=== PATIENT | female | born 1940 | race Caucasian/White ===

== ENCOUNTER → 2016-03-15 | Outpatient (CLI) | payer MEDICARE, OTHER | LOC: GMAM 16:52 | PROVIDERS: ATTEND Family Medicine | DX: G89.29 Other chronic pain (principal); E03.9 Hypothyroidism, unspecified ==

== ENCOUNTER → 2016-04-12 | Outpatient (CLI) | payer MEDICARE, MEDICAID | END | disposition home or self-care (01) | LOC: YCHH 15:21 | PROVIDERS: ATTEND Family Medicine | DX: N39.0 Urinary tract infection, site not specified (principal); I48.91 Unspecified atrial fibrillation; R30.0 Dysuria ==

== ENCOUNTER 2016-04-20 16:52 | Emergency (ER) | payer MEDICARE, MEDICAID ==
--- NOTE | 2016-04-20 17:42 | ED.PDOC ---
History of Present Illness - General Chief Complaint: Fever Stated Complaint: fever, weakness, runny nose Time Seen by Provider: 04/20/16 17:40 Source: patient, RN notes reviewed, Vital Signs reviewed Exam Limitations: no limitations - History of Present Illness Initial Comments: She stated that she had cough and congetion for 3 days then developed low grade fever tonight. Timing/Duration: other - 2 days ago Improving Factors: nothing Worsening Factors: nothing Associated Symptoms: cough - non productive Allergies/Adverse Reactions: Allergies NO KNOWN ALLERGY Allergy (Verified 04/20/16 17:05) Home Medications: Ambulatory Orders Clonazepam 0.5 mg PO BEDTIME 12/17/13 Dabigatran Etexilate [Pradaxa] 75 mg PO BID 12/17/13 Digoxin 250 mcg PO DAILY 12/17/13 Escitalopram [Lexapro] 15 mg PO DAILY 12/17/13 HYDROcodone 10MG/APAP 325MG [[place] 10/325] 1 tab PO Q6H PRN 12/17/13 Levothyroxine Sodium 50 mcg PO DAILY 12/17/13 Phenytoin Sodium Cap [Dilantin Cap] 100 mg PO DAILY 12/17/13 Phenytoin Sodium Cap [Dilantin Cap] 200 mg PO BEDTIME 12/17/13 Polyethylene Glycol 3350 [Miralax] 17 gm PO PRN PRN 12/17/13 Potassium Chloride [Potassium Chloride ER] 20 meq PO BID 12/17/13 Quetiapine Fumarate [Seroquel] 300 mg PO BEDTIME 12/17/13 Rosuvastatin Calcium [Crestor] 20 mg PO DAILY 12/17/13 Diltiazem HCl Coated Beads [Diltiazem Cd] 180 mg PO DAILY 12/09/15 Linaclotide [Linzess] 145 mcg PO DAILY 12/09/15 Dextromet/Guaifenesin 600/30 T [Mucinex Dm 600/30MG] 1 tab PO BID #30 tab Review of Systems - Review of Systems Constitutional: States: see HPI, fever EENTM: States: see HPI, nose congestion Respiratory: States: see HPI, cough Cardiology: States: no symptoms reported Gastrointestinal/Abdominal: States: no symptoms reported Genitourinary: States: no symptoms reported Musculoskeletal: States: no symptoms reported Neurological: States: no symptoms reported Endocrine: States: flushing Hematologic/Lymphatic: States: no symptoms reported Past Medical History (General) - Patient Medical History Hx Seizures: Yes Hx Stroke: No Hx Dementia: No Hx of COPD: Yes Hx Cardiac Disorders: Yes - a fib Hx Congestive Heart Failure: No Hx Hypertension: Yes Hx Thyroid Disease: Yes Hx Diabetes: No Hx Gastroesophageal Reflux: Yes Hx Cancer: No Hx Hepatitis C: No Surgical History: other Other Surgeries:: both knees,back - Vaccination History Hx Tetanus, Diphtheria Vaccination: No Hx Influenza Vaccination: Yes Hx Pneumococcal Vaccination: No - Social History Hx Tobacco Use: No Hx Chewing Tobacco Use: No Hx Alcohol Use: No Hx Substance Use: No Hx Substance Use Treatment: No Hx Depression: No Hx Physical Abuse: No Hx Emotional Abuse: No Hx Suspected Abuse: No - Activities of Daily Living Hospice Agency (if applicable):: None - Female History Patient is a Female of Child Bearing Age (10 -59 yrs old): No Patient : No Family Medical History - Family History Sister Living Status: Still Living Hx Family Cancer: Yes - breast Physical Exam - Physical Exam General Appearance: Alert, No apparent distress Eye Exam: bilateral normal Ears, Nose, Throat: hearing grossly normal, normal ENT inspection, nasal congestion Neck: non-tender, full range of motion, supple Respiratory: chest non-tender, lungs clear, normal breath sounds, no respiratory distress Cardiovascular/Chest: normal peripheral pulses, regular rate, rhythm, no edema, no gallop, no JVD Gastrointestinal/Abdominal: normal bowel sounds, non tender, soft, no organomegaly, no pulsatile mass Back Exam: normal inspection, no CVA tenderness, no vertebral tenderness Extremity: normal range of motion, non-tender, normal inspection, no pedal edema Neurologic: no motor/sensory deficits, alert, normal mood/affect Progress - Results/Orders Results/Orders: Laboratory Results WBC 8.5 K/mm3 (4.8-10.8) 04/20/16 17:42 RBC 4.39 M/mm3 (4.20-5.40) 04/20/16 17:42 Hgb 12.5 gm/dL (12.0-16.0) 04/20/16 17:42 Hct 37.5 % (36.0-47.0) 04/20/16 17:42 MCV 85.6 fl (81.0-99.0) 04/20/16 17:42 MCH 28.4 pg (27.0-31.0) 04/20/16 17:42 MCHC 33.2 g/dL (33.0-37.0) 04/20/16 17:42 RDW 14.9 % (11.5-14.5) H 04/20/16 17:42 Plt Count 216 K/mm3 (130-400) 04/20/16 17:42 MPV 7.3 fl (7.40-10.4) L 04/20/16 17:42 Absolute Neuts (auto) 4.60 K/uL (1.8-6.8) 04/20/16 17:42 Absolute Lymphs (auto) 2.60 K/uL (1.0-3.4) 04/20/16 17:42 Absolute Monos (auto) 1.10 K/uL (0.2-0.8) H 04/20/16 17:42 Absolute Eos (auto) 0.20 K/uL (0.0-0.4) 04/20/16 17:42 Absolute Basos (auto) 0.10 K/uL (0.0-0.1) 04/20/16 17:42 Neutrophils % 53.9 % (42.0-78.0) 04/20/16 17:42 Lymphocytes % 30.1 % (20.0-50.0) 04/20/16 17:42 Monocytes % 12.8 % (2.0-9.0) H 04/20/16 17:42 Eosinophils % 2.3 % (1.0-5.0) 04/20/16 17:42 Basophils % 0.9 % (0.0-2.0) 04/20/16 17:42 Sodium 142 mmol/L (135-145) 04/20/16 17:42 Potassium 3.4 mmol/L (3.6-5.0) L 04/20/16 17:42 Chloride 105 mmol/L (101-111) 04/20/16 17:42 Carbon Dioxide 28 mmol/L (21-31) 04/20/16 17:42 Anion Gap 12.4 (12-18) 04/20/16 17:42 BUN 19 mg/dL (7-18) H 04/20/16 17:42 Creatinine 1.14 mg/dL (0.6-1.3) 04/20/16 17:42 BUN/Creatinine Ratio 16.7 (10-20) 04/20/16 17:42 Random Glucose 79 mg/dL (70-105) 04/20/16 17:42 Serum Osmolality 284.3 mOsm/L (275-295) 04/20/16 17:42 Calcium 9.3 mg/dL (8.4-10.2) 04/20/16 17:42 Total Bilirubin 0.5 mg/dL (0.2-1.0) 04/20/16 17:42 AST 30 IU/L (10-42) 04/20/16 17:42 ALT 22 IU/L (10-60) 04/20/16 17:42 Alkaline Phosphatase 112 IU/L (42-121) 04/20/16 17:42 Serum Total Protein 7.7 gm/dL (6.4-8.2) 04/20/16 17:42 Albumin 4.4 g/dl (3.2-5.5) 04/20/16 17:42 Globulin 3.3 gm/dL (2.3-3.5) 04/20/16 17:42 Albumin/Globulin Ratio 1.3 (1.1-1.9) 04/20/16 17:42 Urine Color Yellow (Yellow) 04/20/16 17:49 Urine Appearance Clear (Clear) 04/20/16 17:49 Urine pH 6.0 (4.5-7.8) 04/20/16 17:49 Ur Specific [place] 1.020 (1.005-1.030) 04/20/16 17:49 Urine Protein 30 mg/dL 04/20/16 17:49 Urine Glucose (UA) Negative mg/dL (Negative) 04/20/16 17:49 Urine Ketones Negative mg/dL (NEGATIVE) 04/20/16 17:49 Urine Blood Moderate (Negative) H 04/20/16 17:49 Urine Nitrite Negative 04/20/16 17:49 Urine Bilirubin Negative (NEGATIVE) 04/20/16 17:49 Urine Urobilinogen 0.2 mg/dL (0.2-1.0) 04/20/16 17:49 Ur Leukocyte Esterase Negative (Negative) 04/20/16 17:49 Urine RBC 20-30 /hpf H 04/20/16 17:49 Urine WBC 3-5 /hpf H 04/20/16 17:49 Ur Epithelial Cells 10-20 /hpf 04/20/16 17:49 Urine Bacteria 1+ 04/20/16 17:49 Digoxin 0.7 ng/mL (1.0-2.0) L 04/20/16 18:18 Phenytoin 5.2 ug/mL (10.0-20.0) L 04/20/16 18:18 Flu swab-negative - EKG/XRAY/CT XRAY: chest - no acute abnormalities noted CT Ordered: Yes - Abd/pelvis: no abnormalities noted Departure - Departure Clinical Impression: Viral upper respiratory illness Time of Disposition: 19:53 Disposition: Discharge to Home or Self Care Condition: Good Departure Forms: ED Discharge - Pt. Copy, Patient Portal Self Enrollment Instructions: DI for Viral Upper Respiratory Infection -- Adult Referrals: Manuel Giang MD [Primary Care Provider] - 1-2 Weeks Prescriptions: Dextromet/Guaifenesin 600/30 T [Mucinex Dm 600/30MG] 1 tab PO BID #30 tab Home Medications: Ambulatory Orders Clonazepam 0.5 mg PO BEDTIME 12/17/13 Dabigatran Etexilate [Pradaxa] 75 mg PO BID 12/17/13 Digoxin 250 mcg PO DAILY 12/17/13 Escitalopram [Lexapro] 15 mg PO DAILY 12/17/13 HYDROcodone 10MG/APAP 325MG [[place] [address]] 1 tab PO Q6H PRN 12/17/13 Levothyroxine Sodium 50 mcg PO DAILY 12/17/13 Phenytoin Sodium Cap [Dilantin Cap] 100 mg PO DAILY 12/17/13 Phenytoin Sodium Cap [Dilantin Cap] 200 mg PO BEDTIME 12/17/13 Polyethylene Glycol 3350 [Miralax] 17 gm PO PRN PRN 12/17/13 Potassium Chloride [Potassium Chloride ER] 20 meq PO BID 12/17/13 Quetiapine Fumarate [Seroquel] 300 mg PO BEDTIME 12/17/13 Rosuvastatin Calcium [Crestor] 20 mg PO DAILY 12/17/13 Diltiazem HCl Coated Beads [Diltiazem Cd] 180 mg PO DAILY 12/09/15 Linaclotide [Linzess] 145 mcg PO DAILY 12/09/15 Dextromet/Guaifenesin 600/30 T [Mucinex Dm 600/30MG] 1 tab PO BID #30 tab Additional Instructions: RETURN TO EMERGENCY ROOM NEEDED;FOLLOW WITH PRIMARY MD 04/25/2016 family to call for appointment
--- NOTE | 2016-04-20 18:28 | RAD ---
EXAM DESCRIPTION: Chest,2 Views CLINICAL HISTORY: weakness COMPARISON: March 09, 2015 FINDINGS: Cardiac silhouette is within normal limits. Aorta is tortuous. There is atherosclerosis. There is no focal parenchymal or pleural disease. There is no acute osseous process visualized. IMPRESSION: No evidence of acute cardiopulmonary disease. Electronically signed by: Fritz Boothe MD 04/20/2016 6:27 PM PENS AND PENCILS DIPPER
--- NOTE | 2016-04-20 19:00 | CT ---
EXAM DESCRIPTION: Abdoment/Pelvis w/o Contrast CLINICAL HISTORY: hematuria COMPARISON: February 14, 2010 TECHNIQUE: Contiguous axial images of the abdomen and pelvis were obtained followed by reconstruction images. FINDINGS: Linear opacities within the lungs may represent scar versus subsegmental atelectasis. There is atherosclerosis. There are multiple low-attenuation masses within the spleen largest measuring approximately 3.2 cm. Correlation with a contrast enhanced CT or ultrasound is recommended for further evaluation. The liver, pancreas and kidneys are within normal limits except for a small renal cyst. 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 Patient is status post hysterectomy. The appendix was not visualized, there is no pericecal inflammation. There is no hydronephrosis or renal stones. The gallbladder is unremarkable by CT criteria. Adrenal glands are within normal limits. Aorta is of normal caliber and tapering. There is no free fluid in the abdomen or pelvis. There is no bowel obstruction. There is no stranding of the mesenteric fat to suggest an inflammatory response. Calcifications within the pelvis compatible with phleboliths. IMPRESSION: Multiple low-attenuation masses within the spleen. This could be secondary to granulomatous disease versus cyst versus lymphoma. Other etiologies not excluded. These have enlarged when compared with the prior exam. Correlation with a contrast enhanced CT or ultrasound is recommended for further evaluation Electronically signed by: Fritz Boothe MD 04/20/2016 6:59 PM SENIOR SOFTWARE QA ENGINEER
[2016-04-20 19:04] VITALS: BP 140/77; TEMP 99
[2016-04-20] MEDS ORDERED: PROMETHAZINE HCL 25 MG TAB PO ONE (20:14)
[2016-04-20] MEDS ORDERED: guaiFENesin/DEXTROMETH SYRUP 5 ML UD PO ONE (20:14)
[2016-04-20] MEDS ORDERED: PROMETHAZINE HCL 25 MG TAB ONE (20:15)
[2016-04-20 20:42] VITALS: O2SAT 95
[2016-04-20] MEDS ORDERED: DEXTROMET/GUAIFENESIN 600/30 TAB PO SCH (21:00)
--- NOTE | 2016-04-24 00:48 | RAD ---
EXAM DESCRIPTION: Chest,2 Views CLINICAL HISTORY: weakness COMPARISON: March 09, 2015 FINDINGS: Cardiac silhouette is within normal limits. Aorta is tortuous. There is atherosclerosis. There is no focal parenchymal or pleural disease. There is no acute osseous process visualized. IMPRESSION: No evidence of acute cardiopulmonary disease. Electronically signed by: Fritz Boothe MD 04/20/2016 6:27 PM PATIENT OFFICE REP
== END 2016-04-20 20:30 | disposition home or self-care (01) ==
LOC: ER 16:52
DX: J06.9 Acute upper respiratory infection, unspecified (principal); J44.9 Chronic obstructive pulmonary disease, unspecified; I48.91 Unspecified atrial fibrillation; I10 Essential (primary) hypertension; K21.9 Gastro-esophageal reflux disease without esophagitis; E07.9 Disorder of thyroid, unspecified; Z79.899 Other long term (current) drug therapy
CPT/HCPCS: 71020; 74176; 80053; 80162; 80185; 81001; 85025; 87502; Q0169

== ENCOUNTER → 2016-05-10 | Outpatient (CLI) | payer MEDICARE, MEDICAID | END | disposition home or self-care (01) | LOC: YCHH 12:14 | PROVIDERS: ATTEND Family Medicine | DX: E03.9 Hypothyroidism, unspecified (principal) ==

== ENCOUNTER → 2016-07-03 | Outpatient (CLI) | payer MEDICARE, MEDICAID | END | disposition home or self-care (01) | LOC: YCHH 10:00 | PROVIDERS: ATTEND Family Medicine | DX: G45.9 Transient cerebral ischemic attack, unspecified (principal); I48.91 Unspecified atrial fibrillation; R42 Dizziness and giddiness ==

== ENCOUNTER → 2016-10-02 | Outpatient (CLI) | payer MEDICARE, MEDICAID | END | disposition home or self-care (01) | LOC: YCHH 09:13 | PROVIDERS: ATTEND Family Medicine | DX: I25.119 Atherosclerotic heart disease of native coronary artery with unspecified angina pectoris (principal); I48.91 Unspecified atrial fibrillation; Z79.899 Other long term (current) drug therapy; E03.9 Hypothyroidism, unspecified ==

== ENCOUNTER → 2016-10-10 | Outpatient (CLI) | payer MEDICARE, MEDICAID ==
--- NOTE | 2016-10-10 11:13 | MRI ---
EXAM DESCRIPTION: Brain w/o Contrast CLINICAL HISTORY: 76 years, Female, EPILEPSY COMPARISON: None. FINDINGS: Standard triplanar sequences. The diffusion-weighted sequences karen acute infarct. Gradient sequence does not show hemorrhage. Slightly prominent ventricles and sulci probably within normal limits. There are moderate white matter changes periventricular white matter. These are bilateral but more on the right side. Additionally one of the foci in the right centrum semiovale, frontal parietal region, measures about 7 mm. This is nonspecific, but it is an asymmetric regional larger than the other foci. Additionally there are asymmetric foci in the posterior temporal regions bilaterally more on the right. This is an unusual distribution and is not typical of more commonly seen age-related white matter changes. Moderate ethmoid sinus mucosal thickening. IMPRESSION: 1. No acute infarct, hemorrhage or mass. 2. Moderate microischemic changes present bilaterally more on the right. As discussed above, the distribution of the white matter changes are not typical of the normally seen age-related changes Electronically signed by: Leopoldo Marshall MD 10/10/2016 11:12 AM CDT
--- NOTE | 2016-10-10 11:20 | MRI ---
EXAM DESCRIPTION: MRA Head and/or Neck CLINICAL HISTORY: 76 years Female, CEREBRAL INFARC COMPARISON: MRI brain October 11, 2016 TECHNIQUE: Noncontrast [id number] MRA images of the neck are obtained with 3-D reconstructed images of the arterial vasculature. Postcontrast coronal images of the neck are also obtained with 3-D reconstructed images of the arterial vasculature. FINDINGS: Noncontrast exam is moderately limited by patient motion artifact. There is normal origin of the great vessels from the aortic arch. There is a 1 cm flow gap at the origin of the left vertebral artery. The right vertebral artery is dominant. There is smooth plaque in the region of the carotid bulb to proximal internal carotid artery bilaterally. No flow gap or significant narrowing is seen by NASCET criteria in the internal carotid arteries. IMPRESSION: Mild smooth nonflow limiting plaque in the carotid bulb to proximal internal carotid artery seen bilaterally without evidence of flow-limiting stenosis by NASCET criteria. Flow gap at the origin of the left vertebral artery suggests significant greater than 75-90 % stenosis at the origin of this vessel. Electronically signed by: Forrest Sam MD 10/10/2016 11:19 AM CDT
== END | disposition home or self-care (01) ==
LOC: MRI 08:51
PROVIDERS: ATTEND Psychiatry & Neurology Neurology
DX: G60.3 Idiopathic progressive neuropathy (principal); G40.311 Generalized idiopathic epilepsy and epileptic syndromes, intractable, with status epilepticus; I63.412 Cerebral infarction due to embolism of left middle cerebral artery; M50.11 Cervical disc disorder with radiculopathy, high cervical region

== ENCOUNTER → 2016-12-18 | Outpatient (CLI) | payer MEDICARE, MEDICAID, OTHER | END | disposition home or self-care (01) | LOC: GMA 15:15 | PROVIDERS: ATTEND Physician Assistant | DX: R31.0 Gross hematuria (principal) ==

== ENCOUNTER → 2017-01-03 | Outpatient (CLI) | payer MEDICARE, MEDICAID | END | disposition home or self-care (01) | LOC: YCHH 09:36 | PROVIDERS: ATTEND Family Medicine | DX: Z79.899 Other long term (current) drug therapy (principal); Z79.01 Long term (current) use of anticoagulants; E78.2 Mixed hyperlipidemia; E03.9 Hypothyroidism, unspecified; I25.119 Atherosclerotic heart disease of native coronary artery with unspecified angina pectoris ==

== ENCOUNTER → 2017-02-01 | Outpatient (CLI) | payer MEDICARE, MEDICAID | END | disposition home or self-care (01) | LOC: GMAM 15:01 | PROVIDERS: ATTEND Family Medicine | DX: R56.9 Unspecified convulsions (principal) ==

== ENCOUNTER → 2017-03-01 | Outpatient (CLI) | payer MEDICARE, MEDICAID | END | disposition home or self-care (01) | LOC: GMAM 14:25 | PROVIDERS: ATTEND Family Medicine | DX: I48.2 Chronic atrial fibrillation (principal); R56.9 Unspecified convulsions ==

== ENCOUNTER → 2017-03-06 | Outpatient (CLI) | payer MEDICARE, MEDICAID | END | disposition home or self-care (01) | LOC: YCHH 12:19 | PROVIDERS: ATTEND Family Medicine | DX: N39.0 Urinary tract infection, site not specified (principal) ==

== ENCOUNTER → 2017-03-12 | Outpatient (CLI) | payer MEDICARE, MEDICAID | END | disposition home or self-care (01) | LOC: YCHH 09:42 | PROVIDERS: ATTEND Family Medicine | DX: Z51.81 Encounter for therapeutic drug level monitoring (principal) ==

== ENCOUNTER 2017-03-16 22:43 | Emergency (ER) | payer MEDICARE, MEDICAID ==
[2017-03-16 23:07] VITALS: TEMP 99.2; O2SAT 97
--- NOTE | 2017-03-16 23:42 | RAD ---
EXAM: Single view chest. INDICATION: Cough. COMPARISON: Chest x-ray: 04/20/2016. FINDINGS: Cardiac silhouette: Mildly enlarged Tegan: Unremarkable. Lobar consolidation: None. Pleural effusion: None. Pneumothorax: None. Other: None. Bones: Unremarkable. Other: None. IMPRESSION: 1. No acute cardiopulmonary process. Electronically signed by: Negro Lobato MD 03/16/2017 11:41 PM ALCOHOL RUBBER Workstation: [id number]
--- NOTE | 2017-03-16 23:50 | ED.PDOC ---
History of Present Illness - General Chief Complaint: Fever Stated Complaint: congestion, fever, aches, cough Time Seen by Provider: 03/16/17 22:59 Source: family Exam Limitations: no limitations - History of Present Illness Initial Comments: Radha Hernandez 76 y/o female brought by family member with dry cough,nasal congestion for one week and developed fever tonight.No nausea,vomiting , diarrhea. Timing/Duration: 1 week, other - see hpi Severity: moderate Improving Factors: nothing Worsening Factors: nothing Associated Symptoms: other - see hpi Allergies/Adverse Reactions: Allergies Levofloxacin [From Levaquin] Allergy (Verified 03/16/17 23:07) Home Medications: Ambulatory Orders Clonazepam 0.5 mg PO BEDTIME 12/17/13 Dabigatran Etexilate [Pradaxa] 75 mg PO BID 12/17/13 Digoxin 250 mcg PO DAILY 12/17/13 Escitalopram [Lexapro] 15 mg PO DAILY 12/17/13 HYDROcodone 10MG/APAP 325MG [[place] 10/325] 1 tab PO Q6H PRN 12/17/13 Levothyroxine Sodium 50 mcg PO DAILY 12/17/13 Phenytoin Sodium Cap Extended [Dilantin Cap] 100 mg PO DAILY 12/17/13 Phenytoin Sodium Cap Extended [Dilantin Cap] 200 mg PO BEDTIME 12/17/13 Polyethylene Glycol 3350 [Miralax] 17 gm PO PRN PRN 12/17/13 Potassium Chloride [Potassium Chloride ER] 20 meq PO BID 12/17/13 Quetiapine Fumarate [Seroquel] 300 mg PO BEDTIME 12/17/13 Rosuvastatin Calcium [Crestor] 20 mg PO DAILY 12/17/13 Diltiazem HCl Coated Beads [Diltiazem Cd] 180 mg PO DAILY 12/09/15 Linaclotide [Linzess] 145 mcg PO DAILY 12/09/15 Dextromet/Guaifenesin 600/30 T [Mucinex Dm 600/30MG] 1 tab PO BID #30 tab Oseltamivir Capsule [Tamiflu] 75 mg PO BID 5 Days #10 capsule 03/17/17 Review of Systems - Review of Systems Constitutional: States: no symptoms reported EENTM: States: see HPI, nose congestion Respiratory: States: see HPI, cough Cardiology: States: no symptoms reported Gastrointestinal/Abdominal: States: no symptoms reported Genitourinary: States: no symptoms reported Musculoskeletal: States: no symptoms reported Skin: States: no symptoms reported Neurological: States: emotional problems - chronic All other Systems: Reviewed and Negative, No Change from Baseline Past Medical History (General) - Patient Medical History Hx Seizures: Yes Hx Stroke: No Hx Dementia: No Hx Asthma: No Hx of COPD: Yes Hx Cardiac Disorders: Yes - a fib Hx Congestive Heart Failure: No Hx Pacemaker: No Hx Hypertension: Yes Hx Thyroid Disease: Yes Hx Diabetes: No Hx Gastroesophageal Reflux: Yes Hx Renal Disease: No Hx Cancer: No Hx of HIV: No Hx Hepatitis C: No Hx MRSA: No Surgical History: other - hysterectomy - Vaccination History Hx Tetanus, Diphtheria Vaccination: No Hx Influenza Vaccination: Yes Hx Pneumococcal Vaccination: No - Social History Hx Tobacco Use: No Hx Chewing Tobacco Use: No Hx Alcohol Use: No Hx Substance Use: No Hx Substance Use Treatment: No Hx Depression: No Hx Physical Abuse: No Hx Emotional Abuse: No Hx Suspected Abuse: No - Activities of Daily Living Grooming Ability: Independent Eating (Feeding) Ability: Independent Toileting Ability: Standby Assistance - Female History Patient : No Family Medical History - Family History Sister Living Status: Still Living Hx Family Cancer: Yes - breast Physical Exam - Physical Exam General Appearance: Alert, Comfortable, No apparent distress Eye Exam: bilateral normal Ears, Nose, Throat: hearing grossly normal, normal ENT inspection, normal pharynx Neck: non-tender, supple Respiratory: chest non-tender, lungs clear, normal breath sounds Cardiovascular/Chest: normal peripheral pulses, regular rate, rhythm, no murmur Peripheral Pulses: radial,right: 2+, radial,left: 2+ Gastrointestinal/Abdominal: normal bowel sounds, non tender, soft, no organomegaly Back Exam: no CVA tenderness, no vertebral tenderness Extremity: non-tender, no pedal edema, no calf tenderness Neurologic: alert, oriented x 3 Skin Exam: normal color Progress - Progress Progress: 03/16/17 23:53 Last Vital Signs Temp 99.2 F 03/16/17 22:45 Pulse 83 03/16/17 22:45 Resp 18 03/16/17 22:45 BP 126/65 03/16/17 22:45 Pulse Ox 97 03/16/17 22:45 - Results/Orders Results/Orders: Laboratory Tests 03/16/17 03/16/17 22:15 22:15 WBC 5.0 RBC 4.21 Hgb 11.2 L Hct 34.3 L MCV 81.5 MCH 26.6 L MCHC 32.7 L RDW 16.3 H Plt Count 167 MPV 7.3 L Absolute Neuts (auto) 3.30 Absolute Lymphs (auto) 0.80 L Absolute Monos (auto) 0.80 Absolute Eos (auto) 0.00 Absolute Basos (auto) 0.00 Neutrophils % 66.7 Lymphocytes % 16.7 L Monocytes % 15.8 H Eosinophils % 0.1 L Basophils % 0.7 Sodium 139 Potassium 3.6 Chloride 106 Carbon Dioxide 26 Anion Gap 10.6 L BUN 20 H Creatinine 1.02 BUN/Creatinine Ratio 19.6 Random Glucose 127 H Serum Osmolality 281.7 Calcium 8.7 Total Bilirubin 0.3 AST 40 ALT 31 Alkaline Phosphatase 91 Serum Total Protein 6.9 Albumin 3.9 Globulin 3.0 Albumin/Globulin Ratio 1.3 POSITIVE FLU B Departure - Departure Clinical Impression: Influenza due to influenza virus, type B Time of Disposition: 23:55 Disposition: Discharge to Home or Self Care Condition: Fair Departure Forms: ED Discharge - Pt. Copy, Patient Portal Self Enrollment Instructions: Influenza, DI for H1N1 Influenza -- Adult Referrals: Manuel Giang MD [Primary Care Provider] - 1-2 Weeks Prescriptions: Oseltamivir Capsule [Tamiflu] 75 mg PO BID 5 Days #10 capsule Home Medications: Ambulatory Orders Clonazepam 0.5 mg PO BEDTIME 12/17/13 Dabigatran Etexilate [Pradaxa] 75 mg PO BID 12/17/13 Digoxin 250 mcg PO DAILY 12/17/13 Escitalopram [Lexapro] 15 mg PO DAILY 12/17/13 HYDROcodone 10MG/APAP 325MG [[place] 10/325] 1 tab PO Q6H PRN 12/17/13 Levothyroxine Sodium 50 mcg PO DAILY 12/17/13 Phenytoin Sodium Cap Extended [Dilantin Cap] 100 mg PO DAILY 12/17/13 Phenytoin Sodium Cap Extended [Dilantin Cap] 200 mg PO BEDTIME 12/17/13 Polyethylene Glycol 3350 [Miralax] 17 gm PO PRN PRN 12/17/13 Potassium Chloride [Potassium Chloride ER] 20 meq PO BID 12/17/13 Quetiapine Fumarate [Seroquel] 300 mg PO BEDTIME 12/17/13 Rosuvastatin Calcium [Crestor] 20 mg PO DAILY 12/17/13 Diltiazem HCl Coated Beads [Diltiazem Cd] 180 mg PO DAILY 12/09/15 Linaclotide [Linzess] 145 mcg PO DAILY 12/09/15 Dextromet/Guaifenesin 600/30 T [Mucinex Dm 600/30MG] 1 tab PO BID #30 tab Oseltamivir Capsule [Tamiflu] 75 mg PO BID 5 Days #10 capsule 03/17/17 Additional Instructions: Tylenol 500mg one tablet every 6 hours for fever as needed;Increase oral fluid intake
[2017-03-16] MEDS ORDERED: OSELTAMIVIR 75 MG CAP PO ONE (23:56)
[2017-03-17 00:23] VITALS: BP 125/69
== END 2017-03-17 00:24 | disposition home or self-care (01) ==
LOC: ER 22:43
DX: J10.1 Influenza due to other identified influenza virus with other respiratory manifestations (principal); J44.9 Chronic obstructive pulmonary disease, unspecified; I48.91 Unspecified atrial fibrillation; I10 Essential (primary) hypertension; E07.9 Disorder of thyroid, unspecified

== ENCOUNTER 2017-03-28 11:57 | Emergency (ER) | payer MEDICARE, MEDICAID ==
[2017-03-28 12:12] VITALS: TEMP 97.5
--- NOTE | 2017-03-28 12:52 | RAD ---
EXAM DESCRIPTION: Chest,2 Views CLINICAL HISTORY: mild sob COMPARISON: Portable chest 03/16/2017. TECHNIQUE: PA lateral. FINDINGS: The lungs are well expanded bilaterally and clear of infiltrates. Stable radiodense nodule in the left base. No pleural effusion, no pneumothorax. Senescent pulmonary densities bilaterally. Heart size upper normal range.; pulmonary vascularity not increased.. Mediastinum no widening. Aorta minimal atherosclerotic changes. Monitoring leads on the chest.. No gross bony thoracic abnormalities. Spondylosis and disc space narrowing at some levels of thoracic spine. IMPRESSION: No radiographic evidence of acute cardiopulmonary disease in this senescent chest. Stable since the prior study 03/16/2017. Electronically signed by: Shailesh Alejandra MD 03/28/2017 12:51 PM CLIP LOADING MACHINE ADJUSTER
--- NOTE | 2017-03-28 13:06 | CT ---
EXAM DESCRIPTION: Head: Computed Tomography. CLINICAL HISTORY: dizziness, fall 2 d ago on coumadin COMPARISON: CT scan of the head without contrast 04/25/2015. TECHNIQUE: Non-helical axial scans through the skull and brain, at 2.5 mm intervals, non-contrast. Coronal and sagittal 2.0 mm reconstructions. Total Exam DLP: 752.48 mGy-cm. This exam was performed according to our departmental dose-optimization program which includes automated exposure control, adjustment of the mA and/or kV according to patient size and/or use of iterative reconstruction technique; to reduce radiation dose to as low as reasonably achievable (ALARA). FINDINGS: No hemorrhage, no mass-effect, and no midline shift. Minimum bilateral periventricular white matter low-density bilaterally symmetric. Asymmetric low-density in the parasagittal right occipital lobe abutting the posterior dura and superior to the occipital horn of the right lateral ventricle. This is stable since the prior study. Second focal asymmetric area of low-density in the supraventricular right frontal lobe is also stable. No abnormal radiodense material in the brain parenchyma. Vascular calcifications anterior and posterior circulations; physiologic calcifications in the pineal gland and choroid plexus. No effacement or displacement of the ventricles, CSF spaces, or subdural spaces. No extra axial fluid collection or hemorrhage. No gross abnormalities of the bony calvarium. 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 Included paranasal sinuses and mastoid air cells are well - aerated. IMPRESSION: 1. No hemorrhage, no mass effect, no midline shift. 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 These are stable since March 2015. 2. CT scans are insensitive for detecting small CVAs in the first 24 hours after onset. Evaluation of the brain stem is also limited. If symptoms persist, consider MRI scan of the brain with diffusion imaging. Electronically signed by: Shailesh Alejandra MD 03/28/2017 1:05 PM [facility]
[2017-03-28 14:05] VITALS: O2SAT 100
--- NOTE | 2017-03-28 14:54 | ED.PDOC ---
History of Present Illness - General Chief Complaint: Chest Pain/[place] Stated Complaint: feels short of breath Time Seen by Provider: 03/28/17 11:59 Source: patient Exam Limitations: no limitations - History of Present Illness Initial Comments: The patient is a 76-year-old female with a long-standing history of depression and anxiety as well as some mild dementia. The patient was sent over from her primary care doctor's office because she said that she had some chest pain. This was after the patient was anxious in the office. Patient is highly suggestible. If you mention a symptom she says that she has it. She does have a history of atrial fibrillation but does appear to be rate controlled here. When she gets anxious her heart rate does increase. When she is active her heart rate does increase. She has not had any fevers. She has not been throwing up. She has not had diarrhea. She reports intermittent nausea and intermittent shortness of breath and intermittent mild chest pain as well as intermittent mild back pain as well as intermittent mild body aches etc.... i have seen this patient before and she actually does look good today.the patient also reports having fallen a couple of days ago. She does not think she hit her head but she is uncertain. She does take blood thinners. Timing/Duration: unsure Severity: mild Improving Factors: nothing Worsening Factors: nothing Associated Symptoms: chest pain, nausea/vomiting, shortness of breath, weakness Allergies/Adverse Reactions: Allergies Levofloxacin [From Levaquin] Allergy (Verified 03/16/17 23:07) Home Medications: Ambulatory Orders Clonazepam 0.5 mg PO Q6H PRN 12/17/13 Digoxin 125 mcg PO DAILY 12/17/13 Escitalopram [Lexapro] 20 mg PO DAILY 12/17/13 HYDROcodone 10MG/APAP 325MG [[place] 10/325] 1 tab PO Q6H PRN 12/17/13 Levothyroxine Sodium 75 mcg PO DAILY 12/17/13 Phenytoin Sodium Cap Extended [Dilantin Cap] 100 mg PO BID 12/17/13 Phenytoin Sodium Cap Extended [Dilantin Cap] 200 mg PO BEDTIME 12/17/13 Polyethylene Glycol 3350 [Miralax] 17 gm PO PRN PRN 12/17/13 Potassium Chloride [Potassium Chloride ER] 20 meq PO BID 12/17/13 Quetiapine Fumarate [Seroquel] 200 mg PO BEDTIME 12/17/13 Rosuvastatin Calcium [Crestor] 20 mg PO DAILY 12/17/13 Diltiazem HCl Coated Beads [Diltiazem Cd] 180 mg PO DAILY 12/09/15 Linaclotide [Linzess] 145 mcg PO DAILY 12/09/15 Fluticasone Furoate-Vilanterol [Breo Ellipta] 1 inh IN DAILY 03/28/17 Linaclotide [Linzess] 145 mcg PO DAILY 03/28/17 Meloxicam 7.5 mg PO DAILY 03/28/17 Nitroglycerin [Nitrostat] 1 ea SL PRN PRN 03/28/17 Warfarin Sodium 2 mg PO DAILY 03/28/17 Review of Systems - Review of Systems Constitutional: States: malaise EENTM: States: nose congestion Respiratory: States: short of breath Cardiology: States: chest pain Gastrointestinal/Abdominal: States: abdominal pain, nausea Genitourinary: States: no symptoms reported Musculoskeletal: States: joint pain, muscle pain, other - odyaches Skin: States: no symptoms reported Neurological: States: anxiety Endocrine: States: intolerance to cold All other Systems: No Change from Baseline Past Medical History (General) - Patient Medical History Hx Seizures: Yes Hx Stroke: No Hx Dementia: No Hx Asthma: No Hx of COPD: Yes Hx Cardiac Disorders: Yes - a fib Hx Congestive Heart Failure: No Hx Pacemaker: No Hx Hypertension: Yes Hx Thyroid Disease: Yes Hx Diabetes: No Hx Gastroesophageal Reflux: Yes Hx Renal Disease: No Hx Cancer: No Hx of HIV: No Hx Hepatitis C: No Hx MRSA: No - Vaccination History Hx Tetanus, Diphtheria Vaccination: No Hx Influenza Vaccination: Yes Hx Pneumococcal Vaccination: Yes - Social History Hx Tobacco Use: Yes Hx Chewing Tobacco Use: No Hx Alcohol Use: No Hx Substance Use: No Hx Substance Use Treatment: No Hx Depression: No Hx Physical Abuse: No Hx Emotional Abuse: No Hx Suspected Abuse: No - Female History Patient : No Family Medical History - Family History Sister Living Status: Still Living Hx Family Cancer: Yes - breast Physical Exam - Physical Exam General Appearance: Alert, Anxious, No apparent distress Eye Exam: bilateral normal Ears, Nose, Throat: hearing grossly normal, normal ENT inspection, normal pharynx Neck: full range of motion, supple, normal inspection Respiratory: lungs clear, normal breath sounds, no respiratory distress, no accessory muscle use Cardiovascular/Chest: normal peripheral pulses, no edema, irregularly irregular , other - regular rate Peripheral Pulses: radial,right: 2+, radial,left: 2+, dorsalis pedis,right: 2+, dorsalis pedis,left: 2+ Gastrointestinal/Abdominal: non tender, soft Rectal Exam: deferred Back Exam: no CVA tenderness, no vertebral tenderness Extremity: normal range of motion, non-tender, normal inspection, no pedal edema , normal capillary refill 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 Her heart rate is well controlled. She does not have the flu. Laboratory work is reassuring. Chest x-ray is reassuring. Head CT performed in light of her recent fall with her blood thinners is reassuring. Her INR is adequate at 2.3. The patient does have some significant anxiety which may be contributing. I do not see any evidence of any acute pathology with this patient at this time. She is to follow-up with her primary care doctor later this week or early next week. ER warnings were given for any significant worsening. - Results/Orders Results/Orders: 03/28/17 12:11 Telemetry .CONTINUOUS shows atrial fibrillation with good rate control. rapid flu is negative. 03/28/17 12:15 EKG STAT shows atrial fibrillation at a rate of 85 bpm. She does have mild T- wave inversions in leads 3 and aVF. She does have changes consistent with LVH. All of these changes are consistent with previous EKGs. Laboratory Results - last 24 hr 03/28/17 03/28/17 03/28/17 12:23 12:23 12:23 WBC 7.0 RBC 4.64 Hgb 12.2 Hct 37.7 MCV 81.2 MCH 26.3 L MCHC 32.4 L RDW 16.2 H Plt Count 263 MPV 7.6 Absolute Neuts (auto) 4.10 Absolute Lymphs (auto) 2.20 Absolute Monos (auto) 0.70 Absolute Eos (auto) 0.00 Absolute Basos (auto) 0.00 Neutrophils % 58.7 Lymphocytes % 30.8 Monocytes % 9.5 H Eosinophils % 0.4 L Basophils % 0.6 PT 26.7 H* INR 2.380 PTT (SP) 38.5 H Sodium 137 Potassium 4.3 Chloride 104 Carbon Dioxide 24 Anion Gap 13.3 BUN 32 H Creatinine 0.99 BUN/Creatinine Ratio 32.3 H Random Glucose 102 Serum Osmolality 280.9 Calcium 9.3 Magnesium 2.1 Total Bilirubin 0.5 AST 53 H ALT 52 Alkaline Phosphatase 104 Creatine Kinase 54 CK-MB (CK-2) 2.6 CK-MB (CK-2) % Not Reportable Troponin I < 0.02 B-Natriuretic Peptide 144.0 H Serum Total Protein 7.7 Albumin 4.4 Globulin 3.3 Albumin/Globulin Ratio 1.3 Urine Color Urine Appearance Urine pH Ur Specific [place] Urine Protein Urine Glucose (UA) Urine Ketones Urine Blood Urine Nitrite Urine Bilirubin Urine Urobilinogen Ur Leukocyte Esterase Urine RBC Urine WBC Ur Epithelial Cells Urine Bacteria 03/28/17 12:43 WBC RBC Hgb Hct MCV MCH MCHC RDW Plt Count MPV Absolute Neuts (auto) Absolute Lymphs (auto) Absolute Monos (auto) Absolute Eos (auto) Absolute Basos (auto) Neutrophils % Lymphocytes % Monocytes % Eosinophils % Basophils % PT INR PTT (SP) Sodium Potassium Chloride Carbon Dioxide Anion Gap BUN Creatinine BUN/Creatinine Ratio Random Glucose Serum Osmolality Calcium Magnesium Total Bilirubin AST ALT Alkaline Phosphatase Creatine Kinase CK-MB (CK-2) CK-MB (CK-2) % Troponin I B-Natriuretic Peptide Serum Total Protein Albumin Globulin Albumin/Globulin Ratio Urine Color Yellow Urine Appearance Clear Urine pH 7.0 Ur Specific [place] 1.015 Urine Protein Negative Urine Glucose (UA) Negative Urine Ketones Negative Urine Blood Moderate H Urine Nitrite Negative Urine Bilirubin Negative Urine Urobilinogen 0.2 Ur Leukocyte Esterase Negative Urine RBC 3-5 H Urine WBC 0 Ur Epithelial Cells 0-1 Urine Bacteria [address] and chest x-ray show no evidence of any definitive acute pathology. She does have numerous chronic changes. Departure - Departure Clinical Impression: Fear associated with healthcare Disposition: Discharge to Home or Self Care Condition: Fair Departure Forms: ED Discharge - Pt. Copy, Patient Portal Self Enrollment Instructions: DI for Atrial Fibrillation, Generalized Anxiety Disorder Diet: regular diet Activity: increase activity as tolerated Referrals: Manuel Giang MD [Primary Care Provider] - 1-2 Weeks Home Medications: Ambulatory Orders Clonazepam 0.5 mg PO Q6H PRN 12/17/13 Digoxin 125 mcg PO DAILY 12/17/13 Escitalopram [Lexapro] 20 mg PO DAILY 12/17/13 HYDROcodone 10MG/APAP 325MG [[place] 10] 1 tab PO Q6H PRN 12/17/13 Levothyroxine Sodium 75 mcg PO DAILY 12/17/13 Phenytoin Sodium Cap Extended [Dilantin Cap] 100 mg PO BID 12/17/13 Phenytoin Sodium Cap Extended [Dilantin Cap] 200 mg PO BEDTIME 12/17/13 Polyethylene Glycol 3350 [Miralax] 17 gm PO PRN PRN 12/17/13 Potassium Chloride [Potassium Chloride ER] 20 meq PO BID 12/17/13 Quetiapine Fumarate [Seroquel] 200 mg PO BEDTIME 12/17/13 Rosuvastatin Calcium [Crestor] 20 mg PO DAILY 12/17/13 Diltiazem HCl Coated Beads [Diltiazem Cd] 180 mg PO DAILY 12/09/15 Linaclotide [Linzess] 145 mcg PO DAILY 12/09/15 Fluticasone Furoate-Vilanterol [Breo Ellipta] 1 inh IN DAILY 03/28/17 Linaclotide [Linzess] 145 mcg PO DAILY 03/28/17 Meloxicam 7.5 mg PO DAILY 03/28/17 Nitroglycerin [Nitrostat] 1 ea SL PRN PRN 03/28/17 Warfarin Sodium 2 mg PO DAILY 03/28/17 Additional Instructions: the patient is a 76-year-old female presenting with several vague complaints. Her heart rate is well controlled. She does not have the flu. Laboratory work is reassuring. Chest x-ray is reassuring. Head CT performed in light of her recent fall with her blood thinners is reassuring. Her INR is adequate at 2.3. The patient does have some significant anxiety which may be contributing. I do not see any evidence of any acute pathology with this patient at this time. She is to follow-up with her primary care doctor later this week or early next week. ER warnings were given for any significant worsening.
[2017-03-28 15:14] VITALS: BP 137/72
== END 2017-03-28 15:14 | disposition home or self-care (01) ==
LOC: ER 11:57
DX: F41.9 Anxiety disorder, unspecified (principal); F40.232 Fear of other medical care; I48.91 Unspecified atrial fibrillation; Z91.81 History of falling; I10 Essential (primary) hypertension; E07.9 Disorder of thyroid, unspecified; J44.9 Chronic obstructive pulmonary disease, unspecified; Z87.891 Personal history of nicotine dependence; Z79.01 Long term (current) use of anticoagulants; Z79.899 Other long term (current) drug therapy

== ENCOUNTER → 2017-04-11 | Outpatient (CLI) | payer MEDICARE, MEDICAID | LOC: YCHH 11:51 | PROVIDERS: ATTEND Family Medicine | DX: Z79.01 Long term (current) use of anticoagulants (principal); Z51.81 Encounter for therapeutic drug level monitoring ==

== ENCOUNTER 2017-05-23 14:19 | Emergency (ER) | payer MEDICARE, MEDICAID ==
[2017-05-23 14:52] VITALS: TEMP 97.4
[2017-05-23] MEDS ORDERED: SODIUM CHLORIDE 0.9% (FLUSH) 10 ML SYG IV PRN (14:59)
--- NOTE | 2017-05-23 15:17 | ED.PDOC ---
History of Present Illness - General Chief Complaint: Cardiovascular Problem Stated Complaint: IRREGULAR HEARTBEAT Time Seen by Provider: 05/23/17 14:59 Source: patient, family Exam Limitations: no limitations - History of Present Illness Initial Comments: PT PRESENTS TO THE ED WITH COMPLAINT OF PALPITATIONS AND CHEST PAIN THAT BEGAN LAST NIGHT. PT DENIES SYMPTOMS CURRENTLY. PT HAS A HISTORY OF AFIB. DAUGHTER ALSO STATES THAT PT HAS BEEN WEAKER THAN USUAL AND WOULD LIKE HER TO BE TESTED FOR A UTI. Timing/Duration: resolved prior to arrival Severity: mild Location: substernal Activities at Onset: none Improving Factors: nothing Worsening Factors: nothing Nitro Today/Relief: no nitro taken today Associated Symptoms: chest pain Allergies/Adverse Reactions: Allergies Levofloxacin [From Levaquin] Allergy (Verified 03/16/17 23:07) Home Medications: Ambulatory Orders Clonazepam 0.5 mg PO Q6H PRN 12/17/13 Digoxin 125 mcg PO DAILY 12/17/13 Escitalopram [Lexapro] 20 mg PO DAILY 12/17/13 HYDROcodone 10MG/APAP 325MG [[place] 325] 1 tab PO Q6H PRN 12/17/13 Levothyroxine Sodium 75 mcg PO DAILY 12/17/13 Phenytoin Sodium Cap Extended [Dilantin Cap] 100 mg PO BID 12/17/13 Phenytoin Sodium Cap Extended [Dilantin Cap] 200 mg PO BEDTIME 12/17/13 Polyethylene Glycol 3350 [Miralax] 17 gm PO PRN PRN 12/17/13 Potassium Chloride [Potassium Chloride ER] 20 meq PO BID 12/17/13 Quetiapine Fumarate [Seroquel] 200 mg PO BEDTIME 12/17/13 Rosuvastatin Calcium [Crestor] 20 mg PO DAILY 12/17/13 Diltiazem HCl Coated Beads [Diltiazem Cd] 180 mg PO DAILY 12/09/15 Linaclotide [Linzess] 145 mcg PO DAILY 12/09/15 Fluticasone Furoate-Vilanterol [Breo Ellipta] 1 inh IN DAILY 03/28/17 Linaclotide [Linzess] 145 mcg PO DAILY 03/28/17 Meloxicam 7.5 mg PO DAILY 03/28/17 Nitroglycerin [Nitrostat] 1 ea SL PRN PRN 03/28/17 Warfarin Sodium 2 mg PO DAILY 03/28/17 Cefuroxime Axetil [Ceftin] 500 mg PO Q12H 7 Days #14 tablet 05/23/17 Review of Systems - Review of Systems Constitutional: Denies: chills, fever EENTM: Denies: nose congestion, throat pain Respiratory: Denies: cough, short of breath Cardiology: States: see HPI, chest pain, palpitations Gastrointestinal/Abdominal: Denies: nausea, vomiting Genitourinary: Denies: frequency, hematuria Musculoskeletal: Denies: joint pain, joint swelling Skin: Denies: dryness, lesions Neurological: Denies: headache, paresthesia Endocrine: States: no symptoms reported Hematologic/Lymphatic: States: no symptoms reported Past Medical History (General) - Patient Medical History Hx Seizures: Yes Hx Stroke: Yes Hx Dementia: No Hx Asthma: No Hx of COPD: Yes Hx Cardiac Disorders: Yes - a fib Hx Congestive Heart Failure: No Hx Pacemaker: No Hx Hypertension: Yes Hx Thyroid Disease: Yes Hx Diabetes: No Hx Gastroesophageal Reflux: Yes Hx Renal Disease: No Hx Cancer: No Hx of HIV: No Hx Hepatitis C: No Hx MRSA: No - Vaccination History Hx Tetanus, Diphtheria Vaccination: No Hx Influenza Vaccination: Yes Hx Pneumococcal Vaccination: Yes - Social History Hx Tobacco Use: Yes Hx Chewing Tobacco Use: No Hx Alcohol Use: No Hx Substance Use: No Hx Substance Use Treatment: No Hx Depression: No Hx Physical Abuse: No Hx Emotional Abuse: No Hx Suspected Abuse: No - Female History Patient : No Family Medical History - Family History Sister Living Status: Still Living Hx Family Cancer: Yes - breast Hx Family;Other: NONE Physical Exam - Physical Exam General Appearance: Alert, Comfortable, No apparent distress, Well Developed, Well Groomed, Well Hydrated Eyes, Ears, Nose, Throat Exam: normal ENT inspection Neck: normal inspection Respiratory: lungs clear, normal breath sounds, no respiratory distress Cardiovascular/Chest: no murmur, irregularly irregular Gastrointestinal/Abdominal: non tender, soft, no organomegaly Extremity: no calf tenderness, pedal edema Neurologic: alert, normal mood/affect Skin Exam: normal color, warm/dry Progress - Progress Progress: 05/23/17 16:36 PT RESTING COMFORTABLY ON RE-EVALUATION. NO COMPLAINT OF CHEST PAIN OR PALPITATIONS WHILE IN THE ED. LABS AND DIAGNOSTICS DISCUSSED WITH PATIENT AND FAMILY. WILL GIVE 1G IV ROCEPHIN AND D/C ON CEFTIN FOR UTI. - EKG/XRAY/CT EKG: Atrial, Fibrillation - @63BPM, NL AXIS, LVH, no ST T wave changes, Changed from - 03/28/17, NORMALIZATION OF T WAVE INVERSIONS Departure - Departure Clinical Impression: Chest pain, Atrial fibrillation, UTI (lower urinary tract infection), Palpitations Time of Disposition: 16:38 Disposition: Discharge to Home or Self Care Condition: Good Departure Forms: ED Discharge - Pt. Copy, Patient Portal Self Enrollment Instructions: DI for Atrial Fibrillation, DI for Urinary Tract Infection (UTI) , DI for Chest Pain Diet: resume usual diet Activity: increase activity as tolerated Referrals: Manuel Giang MD [Primary Care Provider] - 1-2 Weeks Prescriptions: Cefuroxime Axetil [Ceftin] 500 mg PO Q12H 7 Days #14 tablet Home Medications: Ambulatory Orders Clonazepam 0.5 mg PO Q6H PRN 12/17/13 Digoxin 125 mcg PO DAILY 12/17/13 Escitalopram [Lexapro] 20 mg PO DAILY 12/17/13 HYDROcodone 10MG/APAP 325MG [[place] 10325] 1 tab PO Q6H PRN 12/17/13 Levothyroxine Sodium 75 mcg PO DAILY 12/17/13 Phenytoin Sodium Cap Extended [Dilantin Cap] 100 mg PO BID 12/17/13 Phenytoin Sodium Cap Extended [Dilantin Cap] 200 mg PO BEDTIME 12/17/13 Polyethylene Glycol 3350 [Miralax] 17 gm PO PRN PRN 12/17/13 Potassium Chloride [Potassium Chloride ER] 20 meq PO BID 12/17/13 Quetiapine Fumarate [Seroquel] 200 mg PO BEDTIME 12/17/13 Rosuvastatin Calcium [Crestor] 20 mg PO DAILY 12/17/13 Diltiazem HCl Coated Beads [Diltiazem Cd] 180 mg PO DAILY 12/09/15 Linaclotide [Linzess] 145 mcg PO DAILY 12/09/15 Fluticasone Furoate-Vilanterol [Breo Ellipta] 1 inh IN DAILY 03/28/17 Linaclotide [Linzess] 145 mcg PO DAILY 03/28/17 Meloxicam 7.5 mg PO DAILY 03/28/17 Nitroglycerin [Nitrostat] 1 ea SL PRN PRN 03/28/17 Warfarin Sodium 2 mg PO DAILY 03/28/17 Cefuroxime Axetil [Ceftin] 500 mg PO Q12H 7 Days #14 tablet 05/23/17
--- NOTE | 2017-05-23 15:24 | RAD ---
EXAM DESCRIPTION: Chest,1 View CLINICAL HISTORY: PALPITATIONS, CHEST PAIN COMPARISON: March 28, 2017 IMPRESSION: Single AP portable upright view of the chest shows enlargement of the cardiac silhouette without pulmonary vascular congestion. Tortuosity the thoracic aorta is again seen. Lungs are normally aerated and clear. No obvious pleural effusion or pneumothorax is seen. Electronically signed by: Forrest Sam MD 05/23/2017 3:21 PM CDT
[2017-05-23] MEDS ORDERED: cefTRIAXone SODIUM 1 GM in SODIUM CHL 0.9% 50ML MIN-BAG+ 50 ML IVPB ONE (15:57)
[2017-05-23] MEDS ORDERED: cefTRIAXone SODIUM 1 GM VIAL ONE (16:22)
[2017-05-23] MEDS ORDERED: SODIUM CHL 0.9% 50ML MIN-BAG+ 50 ML IVPB ONE (16:23)
[2017-05-23 16:39] VITALS: BP 157/64
[2017-05-23 16:54] VITALS: O2SAT 98
== END 2017-05-23 17:16 | disposition home or self-care (01) ==
LOC: ER 14:19
DX: R00.2 Palpitations (principal); R07.9 Chest pain, unspecified; I48.91 Unspecified atrial fibrillation; N39.0 Urinary tract infection, site not specified; J44.9 Chronic obstructive pulmonary disease, unspecified; Z86.73 Personal history of transient ischemic attack (TIA), and cerebral infarction without residual deficits; Z79.899 Other long term (current) drug therapy; Z79.01 Long term (current) use of anticoagulants
CPT/HCPCS: 36415; 71045; 80048; 81001; 82550; 82553; 83880; 84484; 85025; 85610; 85730; 87086; 93005; J0696; J7050

== ENCOUNTER → 2017-06-11 | Outpatient (CLI) | payer MEDICARE, MEDICAID | LOC: YCHH 10:20 | PROVIDERS: ATTEND Family Medicine | DX: E03.9 Hypothyroidism, unspecified (principal); R30.9 Painful micturition, unspecified; I48.91 Unspecified atrial fibrillation; R56.9 Unspecified convulsions; E78.2 Mixed hyperlipidemia; D64.9 Anemia, unspecified; Z79.899 Other long term (current) drug therapy ==

== ENCOUNTER → 2017-07-04 | Outpatient (CLI) | payer MEDICARE, OTHER | LOC: YCHH 09:36 | PROVIDERS: ATTEND Family Medicine | DX: N39.0 Urinary tract infection, site not specified (principal) ==

== ENCOUNTER → 2017-08-28 | Outpatient (CLI) | payer MEDICARE, OTHER | LOC: YCHH 10:21 | PROVIDERS: ATTEND Family Medicine | DX: N39.0 Urinary tract infection, site not specified (principal) ==

== ENCOUNTER → 2017-09-05 | Outpatient (CLI) | payer MEDICARE, MEDICAID | LOC: YCHH 10:07 | PROVIDERS: ATTEND Family Medicine | DX: E78.5 Hyperlipidemia, unspecified (principal); E03.9 Hypothyroidism, unspecified; I48.91 Unspecified atrial fibrillation; D64.9 Anemia, unspecified; Z79.899 Other long term (current) drug therapy ==

== ENCOUNTER → 2017-10-24 | Outpatient (CLI) | payer MEDICARE, MEDICAID | LOC: YCHH 09:35 | PROVIDERS: ATTEND Family Medicine | DX: N39.0 Urinary tract infection, site not specified (principal) ==

== ENCOUNTER → 2017-11-14 | Outpatient (CLI) | payer MEDICARE, OTHER | LOC: YCHH 12:18 | PROVIDERS: ATTEND Family Medicine | DX: Z79.899 Other long term (current) drug therapy (principal) ==

== ENCOUNTER 2017-11-26 14:54 | Emergency (ER) | payer MEDICARE, MEDICAID ==
[2017-11-26 15:33] VITALS: TEMP 98.9; O2SAT 99
--- NOTE | 2017-11-26 15:43 | RAD ---
EXAM DESCRIPTION: Chest,1 View CLINICAL HISTORY: 77 years Female, weakness, confusion COMPARISON: 05/23/2017 IMPRESSION: The heart is enlarged, without failure. The thoracic aorta is tortuous. The lungs are hyperexpanded. No confluent airspace consolidation, pleural effusion, or pneumothorax. No acute osseous abnormality. Electronically signed by: Abdelrahman Marte MD 11/26/2017 3:41 PM CDT
--- NOTE | 2017-11-26 15:46 | CT ---
EXAM DESCRIPTION: Head. CT head without contrast. CLINICAL HISTORY: general weakness, confusion, falls COMPARISON: 03/28/2017 TECHNIQUE: Multiple axial images of the head without contrast. Multiplanar reformatted images. This exam was performed according to our departmental dose-optimization program, which includes automated exposure control, adjustment of the mA and/or kV according to patient size and/or use of iterative reconstruction technique. FINDINGS: There is no CT evidence of intracranial hemorrhage, mass effect, or large territory infarction. Moderate generalized volume loss. Moderate patchy supratentorial white matter hypodensities. Chronic right occipital infarct with encephalomalacia again demonstrated. There are no abnormal extra-axial fluid collections. Calcific plaque in the visualized arteries. There is no acute calvarial defect. The visualized paranasal sinuses and the mastoids are clear. IMPRESSION: 1. No CT evidence of an acute intracranial abnormality. If there is concern for an acute or subacute infarct, consider follow-up MRI. 2. Advanced senescent changes. 3. Chronic right occipital infarct with encephalomalacia. Electronically signed by: Abdelrahman Marte MD 11/26/2017 3:44 PM CDT
[2017-11-26] MEDS ORDERED: SODIUM CHLORIDE 0.9% 1000ML 1,000 ML IVS ONE (16:58)
--- NOTE | 2017-11-26 17:01 | ED.PDOC ---
History of Present Illness - General Chief Complaint: Neuro Symptoms/Deficits Time Seen by Provider: 11/26/17 15:07 Source: patient, family Exam Limitations: clinical condition - History of Present Illness Initial Comments: the patient is a 77-year-old female brought in by family secondary to concerns for mild confusion and one or 2 falls over the last couple of days. There is no evidence of any trauma. The patient is alert. She does have significant long-term limitation secondary to dementia. She is as conversive as she normally is with me. She is not reporting any new pain anywhere. Family 's concern for a urinary tract infection or maybe a small stroke. She has apparently had both several times before. No new focal neurological deficits. I do not see any evidence of any facial droop. She normally has some mild slurring of her speech and still does. She is not having any problems swallowing. She does have some mild increased generalized weakness according to family. Her gait is a little more unstable than it normally is. She does have home health at home. The patient is pleasant and cooperative. Timing/Duration: unsure Severity: mild Improving Factors: nothing Worsening Factors: nothing Associated Symptoms: denies symptoms Allergies/Adverse Reactions: Allergies Levofloxacin [From Levaquin] Allergy (Verified 03/16/17 23:07) Home Medications: Ambulatory Orders Clonazepam 0.5 mg PO Q6H PRN 12/17/13 Digoxin 125 mcg PO DAILY 12/17/13 Escitalopram [Lexapro] 20 mg PO DAILY 12/17/13 HYDROcodone 10MG/APAP 325MG [[place] 10/325] 1 tab PO Q6H PRN 12/17/13 Levothyroxine Sodium 75 mcg PO DAILY 12/17/13 Phenytoin Sodium Cap Extended [Dilantin Cap] 100 mg PO BID 12/17/13 Phenytoin Sodium Cap Extended [Dilantin Cap] 200 mg PO BEDTIME 12/17/13 Polyethylene Glycol 3350 [Miralax] 17 gm PO PRN PRN 12/17/13 Potassium Chloride [Potassium Chloride ER] 20 meq PO BID 12/17/13 Quetiapine Fumarate [Seroquel] 200 mg PO BEDTIME 12/17/13 Rosuvastatin Calcium [Crestor] 20 mg PO DAILY 12/17/13 Diltiazem HCl Coated Beads [Diltiazem Cd] 180 mg PO DAILY 12/09/15 Linaclotide [Linzess] 145 mcg PO DAILY 12/09/15 Fluticasone Furoate-Vilanterol [Breo Ellipta] 1 inh IN DAILY 03/28/17 Linaclotide [Linzess] 145 mcg PO DAILY 03/28/17 Meloxicam 7.5 mg PO DAILY 03/28/17 Nitroglycerin [Nitrostat] 1 ea SL PRN PRN 03/28/17 Warfarin Sodium 2 mg PO DAILY 03/28/17 Cefuroxime Axetil [Ceftin] 500 mg PO Q12H 7 Days #14 tablet 05/23/17 Review of Systems - Review of Systems Constitutional: States: weakness EENTM: States: no symptoms reported Respiratory: States: no symptoms reported Cardiology: States: no symptoms reported Gastrointestinal/Abdominal: States: no symptoms reported Genitourinary: States: no symptoms reported Musculoskeletal: States: see HPI - chronic aches and pains primarily Skin: States: no symptoms reported Neurological: States: other - a little more confusion than normal Endocrine: States: no symptoms reported All other Systems: No Change from Baseline Past Medical History (General) - Patient Medical History Hx Seizures: Yes Hx Stroke: Yes Hx Dementia: No Hx Asthma: No Hx of COPD: Yes Hx Cardiac Disorders: Yes - a fib Hx Congestive Heart Failure: No Hx Pacemaker: No Hx Hypertension: Yes Hx Thyroid Disease: Yes Hx Diabetes: No Hx Gastroesophageal Reflux: Yes Hx Renal Disease: No Hx Cancer: No Hx of HIV: No Hx Hepatitis C: No Hx MRSA: No - Vaccination History Hx Tetanus, Diphtheria Vaccination: No Hx Influenza Vaccination: Yes Hx Pneumococcal Vaccination: No Immunizations Up to Date: No - Social History Hx Tobacco Use: No Hx Chewing Tobacco Use: No Hx Alcohol Use: No Hx Substance Use: No Hx Substance Use Treatment: No Hx Depression: No Feels Threatened In Home Enviroment: No Feels Threatened In a Relationship: No Hx Physical Abuse: No Hx Emotional Abuse: No Hx Suspected Abuse: No - Activities of Daily Living Hospice Agency (if applicable):: None - Female History Patient is a Female of Child Bearing Age (10 -59 yrs old): No Patient : No Family Medical History - Family History Sister Living Status: Still Living Hx Family Cancer: Yes - breast Hx Family;Other: NONE Physical Exam - Physical Exam General Appearance: Alert, Comfortable, No apparent distress Eye Exam: bilateral normal Ears, Nose, Throat: hearing grossly normal, normal ENT inspection, normal pharynx Neck: full range of motion, supple, normal inspection Respiratory: lungs clear, normal breath sounds, no respiratory distress, no accessory muscle use Cardiovascular/Chest: normal peripheral pulses, no edema, other - regular rate and irregular rhythm Peripheral Pulses: radial,right: 2+, radial,left: 2+, dorsalis pedis,right: 2+, dorsalis pedis,left: 2+ Gastrointestinal/Abdominal: non tender, soft Rectal Exam: deferred Back Exam: no vertebral tenderness Extremity: non-tender, no calf tenderness, normal capillary refill, other - chronic +1 edema to bilateral lower extremities. Chronic arthritic changes diffusely. 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 She does not remember having any falls. She is really unable to give much in the way of her medical history. This is all fairly normal, consistent with her previous exams Skin Exam: normal color Comments: Vital Signs - 24 hr 11/26/17 14:54 Temperature 98.9 F Pulse Rate [ 88 Apical] Respiratory 18 Rate Blood Pressure 151/87 [Left Arm] O2 Sat by Pulse 99 Oximetry Progress - Progress Progress: 11/26/17 17:03 the patient's a 77-year-old female presenting to the emergency room secondary to mild progressive weakness and several falls over the last couple of days. There is been a question of some mild increased confusion over baseline. Workup here including CT scan of the head, chest x-ray and lab work shows no evidence of any acute infection or stroke. She is mildly dehydrated and is receiving some IV fluids. I do think that she should resume working with physical therapy with home health to improve on deconditioning and gait stability. She does need to use assistive devices to help prevent falls. She needs to keep follow-up with her home health. ER warnings were given. - Results/Orders Results/Orders: EKG shows atrial fibrillation that is rate controlled at 86 bpm. Mild scooping of the T waves in leads 2 and V4 through V6. This is not entirely new. She does have criteria for LVH. There is a borderline prolonged QT interval. Laboratory Tests 10/01/18 10/01/18 10/01/18 15:11 15:11 15:11 WBC 6.4 RBC 4.36 Hgb 11.2 L Hct 35.3 L MCV 80.8 L MCH 25.6 L MCHC 31.8 L RDW 17.1 H Plt Count 247 MPV 7.3 L Absolute Neuts (auto) 3.40 Absolute Lymphs (auto) 2.20 Absolute Monos (auto) 0.60 Absolute Eos (auto) 0.10 Absolute Basos (auto) 0.10 Neutrophils % 53.8 Lymphocytes % 33.8 Monocytes % 9.6 H Eosinophils % 2.0 Basophils % 0.8 PT 15.4 H INR 1.55 H PTT (SP) 29.2 Sodium 140 Potassium 4.4 Chloride 105 Carbon Dioxide 28 Anion Gap 11.4 L BUN 22 H Creatinine 0.97 BUN/Creatinine Ratio 22.7 H Random Glucose 114 H Serum Osmolality 283.6 Calcium 9.2 Total Bilirubin 0.4 AST 31 ALT 24 Alkaline Phosphatase 92 Creatine Kinase 75 CK-MB (CK-2) 2.9 CK-MB (CK-2) % Not Reportable Troponin I < 0.02 B-Natriuretic Peptide 145.0 H Serum Total Protein 7.6 Albumin 4.5 Globulin 3.1 Albumin/Globulin Ratio 1.5 chest x-ray shows no overt fluid overload or infiltrates. No pneumothorax. - EKG/XRAY/CT CT Ordered: No CT Interpretation Call Back: No Departure - Departure Clinical Impression: Physical deconditioning, Mild dehydration Fall at home Qualifiers: Encounter type: initial encounter Qualified Code(s): W19.XXXA - Unspecified fall, initial encounter; Y92.009 - Unspecified place in unspecified non- institutional (private) residence as the place of occurrence of the external cause; Y92.009 - Unspecified place in unspecified non-institutional (private) residence as the place of occurrence of the external cause Disposition: Discharge to Home or Self Care Condition: Fair Departure Forms: ED Discharge - Pt. Copy, Patient Portal Self Enrollment Instructions: Dehydration, Adult (DC), Generalized Weakness (DC) Diet: regular diet Activity: increase activity as tolerated Referrals: Manuel Giang MD [Primary Care Provider] - 1-2 Weeks Home Medications: Ambulatory Orders Clonazepam 0.5 mg PO Q6H PRN 12/17/13 Digoxin 125 mcg PO DAILY 12/17/13 Escitalopram [Lexapro] 20 mg PO DAILY 12/17/13 HYDROcodone 10MG/APAP 325MG [[place] 10/325] 1 tab PO Q6H PRN 12/17/13 Levothyroxine Sodium 75 mcg PO DAILY 12/17/13 Phenytoin Sodium Cap Extended [Dilantin Cap] 100 mg PO BID 12/17/13 Phenytoin Sodium Cap Extended [Dilantin Cap] 200 mg PO BEDTIME 12/17/13 Polyethylene Glycol 3350 [Miralax] 17 gm PO PRN PRN 12/17/13 Potassium Chloride [Potassium Chloride ER] 20 meq PO BID 12/17/13 Quetiapine Fumarate [Seroquel] 200 mg PO BEDTIME 12/17/13 Rosuvastatin Calcium [Crestor] 20 mg PO DAILY 12/17/13 Diltiazem HCl Coated Beads [Diltiazem Cd] 180 mg PO DAILY 12/09/15 Linaclotide [Linzess] 145 mcg PO DAILY 12/09/15 Fluticasone Furoate-Vilanterol [Breo Ellipta] 1 inh IN DAILY 03/28/17 Linaclotide [Linzess] 145 mcg PO DAILY 03/28/17 Meloxicam 7.5 mg PO DAILY 03/28/17 Nitroglycerin [Nitrostat] 1 ea SL PRN PRN 03/28/17 Warfarin Sodium 2 mg PO DAILY 03/28/17 Cefuroxime Axetil [Ceftin] 500 mg PO Q12H 7 Days #14 tablet 05/23/17 Additional Instructions: the patient's a 77-year-old female presenting to the emergency room secondary to mild progressive weakness and several falls over the last couple of days. There is been a question of some mild increased confusion over baseline. Workup here including CT scan of the head, chest x-ray and lab work shows no evidence of any acute infection or stroke. She is mildly dehydrated and is receiving some IV fluids. I do think that she should resume working with physical therapy with home health to improve on deconditioning and gait stability. She does need to use assistive devices to help prevent falls. She needs to keep follow-up with her home health. ER warnings were given.
[2017-11-26 19:34] VITALS: BP 184/85
== END 2017-11-26 19:34 | disposition home or self-care (01) ==
LOC: ER 14:54
DX: E86.0 Dehydration (principal); R41.0 Disorientation, unspecified; F03.90 Unspecified dementia, unspecified severity, without behavioral disturbance, psychotic disturbance, mood disturbance, and anxiety; I48.91 Unspecified atrial fibrillation; J44.9 Chronic obstructive pulmonary disease, unspecified; E07.9 Disorder of thyroid, unspecified; K21.9 Gastro-esophageal reflux disease without esophagitis; I10 Essential (primary) hypertension; Z86.73 Personal history of transient ischemic attack (TIA), and cerebral infarction without residual deficits; Z88.8 Allergy status to other drugs, medicaments and biological substances; Z79.899 Other long term (current) drug therapy; W19.XXXA Unspecified fall, initial encounter
CPT/HCPCS: 70450; 71045; 80053; 82550; 82553; 83880; 84484; 85025; 85610; 85730; 93005; J7030

== ENCOUNTER → 2017-11-26 | Outpatient (CLI) | payer MEDICARE, MEDICAID, OTHER | LOC: CANPRECLI → YCHH 15:00 → EDSTATUS 15:11 | PROVIDERS: ATTEND Family Medicine | DX: N39.0 Urinary tract infection, site not specified (principal) ==

== ENCOUNTER → 2017-11-28 | Outpatient (CLI) | payer MEDICARE, MEDICAID | LOC: YCHH 09:46 | PROVIDERS: ATTEND Family Medicine | DX: I25.119 Atherosclerotic heart disease of native coronary artery with unspecified angina pectoris (principal); E03.9 Hypothyroidism, unspecified; Z79.899 Other long term (current) drug therapy ==

== ENCOUNTER → 2017-12-12 | Outpatient (CLI) | payer MEDICARE, MEDICAID | LOC: YCHH 09:12 | PROVIDERS: ATTEND Family Medicine | DX: I25.119 Atherosclerotic heart disease of native coronary artery with unspecified angina pectoris (principal); E03.9 Hypothyroidism, unspecified; D64.9 Anemia, unspecified; Z51.81 Encounter for therapeutic drug level monitoring ==

== ENCOUNTER → 2018-02-06 | Outpatient (CLI) | payer MEDICARE, MEDICAID | LOC: YCHH 09:50 | PROVIDERS: ATTEND Family Medicine | DX: N39.0 Urinary tract infection, site not specified (principal) ==

== ENCOUNTER → 2018-03-06 | Outpatient (CLI) | payer MEDICARE, MEDICAID | LOC: YCHH 09:38 | PROVIDERS: ATTEND Family Medicine | DX: I25.119 Atherosclerotic heart disease of native coronary artery with unspecified angina pectoris (principal); E03.9 Hypothyroidism, unspecified; R56.9 Unspecified convulsions; D64.9 Anemia, unspecified; Z79.01 Long term (current) use of anticoagulants ==

== ENCOUNTER 2018-03-16 10:46 | Emergency (ER) | payer MEDICARE, MEDICAID ==
[2018-03-16 11:05] VITALS: TEMP 97.6
[2018-03-16] MEDS ORDERED: SUCRALFATE 1 GM/10 ML 1 GM UD PO ONE (11:07)
[2018-03-16] MEDS ORDERED: ALPRAZolam 0.25 MG TAB PO ONE (11:07)
[2018-03-16] MEDS ORDERED: ASPIRIN TABLET 325 MG TAB PO ONE (11:07)
--- NOTE | 2018-03-16 11:57 | RAD ---
EXAM DESCRIPTION: Ankle,Right 2 Views CLINICAL HISTORY: 77 years Female, ankle pain fall 1 week ago COMPARISON: January 07, 2007. FINDINGS: There is no evidence of acute fracture or dislocation or destructive bony lesion. A small accessory ossicle is noted below the lateral malleolus and another at the dorsal margin of the talonavicular joint. Plantar and posterior calcaneal spurs are noted. The ankle mortise appears minimally widened laterally, about the same as on the previous study. No significant interval bony changes are seen. Suggestion of soft tissue swelling, although this may be related to body habitus. Mineral calcification noted above the distal talus was not seen on the previous exam but is of doubtful significance. IMPRESSION: No finding suspicious for acute osseous injury. Electronically signed by: Joe Dowling MD 03/16/2018 11:56 AM [facility]
--- NOTE | 2018-03-16 12:01 | RAD ---
EXAM DESCRIPTION: Chest,1 View CLINICAL HISTORY: 77 years Female, palpitations COMPARISON: November 26, 2017. FINDINGS: Heart size appears slightly prominent, even allowing for technique. There is uncoiling of the thoracic aorta. The lungs are essentially clear. Mild right convex thoracic scoliosis is noted. No significant interval change is seen compared to the previous study. IMPRESSION: No radiographic evidence of acute cardiopulmonary disease. Electronically signed by: Joe Dowling MD 03/16/2018 12:00 PM [facility]
--- NOTE | 2018-03-16 12:52 | ED.PDOC ---
History of Present Illness - General Chief Complaint: Cardiovascular Problem Stated Complaint: Chest feels funny, R ankle/foot discomfort Time Seen by Provider: 03/16/18 10:54 Source: patient Exam Limitations: no limitations - History of Present Illness Initial Comments: the patient is a 77-year-old female with dementia presenting to the emergency room with one of her caregivers secondary to complaints of mild palpitations over the last week or 2. No real chest pain just mainly some palpitations. She does have a history of atrial fibrillation. She does not remember that she has atrial fibrillation. The patient does have very significant dementia which limits the reliability of the history. The patient didn't follow week ago and does have some right ankle pain. She has been ambulating on it. There is mild swelling and mild tenderness to palpation laterally. No fevers. She has had some episodes of palpitations since she's been here. Long-term monitoring has shown atrial fibrillation with good rate control normally in the 60s to 70s. She will get intermittent episodes that go up to around 110-130 that last less than 10 seconds. No evidence of any obvious wide complex tachycardia. She does take digoxin. No evidence of any syncope or near syncope. Timing/Duration: unsure Severity: mild Improving Factors: nothing Worsening Factors: movement Allergies/Adverse Reactions: Allergies Levofloxacin [From Levaquin] Allergy (Verified 03/16/17 23:07) Home Medications: Ambulatory Orders Clonazepam 0.5 mg PO Q6H PRN 12/17/13 Digoxin 125 mcg PO DAILY 12/17/13 Escitalopram [Lexapro] 20 mg PO DAILY 12/17/13 HYDROcodone 10MG/APAP 325MG [[place] 10325] 1 tab PO Q6H PRN 12/17/13 Levothyroxine Sodium 75 mcg PO DAILY 12/17/13 Phenytoin Sodium Cap Extended [Dilantin Cap] 100 mg PO BID 12/17/13 Phenytoin Sodium Cap Extended [Dilantin Cap] 200 mg PO BEDTIME 12/17/13 Polyethylene Glycol 3350 [Miralax] 17 gm PO PRN PRN 12/17/13 Potassium Chloride [Potassium Chloride ER] 20 meq PO BID 12/17/13 Quetiapine Fumarate [Seroquel] 200 mg PO BEDTIME 12/17/13 Rosuvastatin Calcium [Crestor] 20 mg PO DAILY 10/22/14 Diltiazem HCl Coated Beads [Diltiazem Cd] 180 mg PO DAILY 12/09/15 Linaclotide [Linzess] 145 mcg PO DAILY 12/09/15 Fluticasone Furoate-Vilanterol [Breo Ellipta] 1 inh IN DAILY 03/28/17 Linaclotide [Linzess] 145 mcg PO DAILY 03/28/17 Meloxicam 7.5 mg PO DAILY 03/28/17 Nitroglycerin [Nitrostat] 1 ea SL PRN PRN 03/28/17 Warfarin Sodium 2 mg PO DAILY 03/28/17 Cefuroxime Axetil [Ceftin] 500 mg PO Q12H 7 Days #14 tablet 05/23/17 Review of Systems - Review of Systems Constitutional: States: no symptoms reported EENTM: States: no symptoms reported Respiratory: States: no symptoms reported Cardiology: States: palpitations Gastrointestinal/Abdominal: States: no symptoms reported Genitourinary: States: no symptoms reported Musculoskeletal: States: see HPI Skin: States: no symptoms reported Neurological: States: no symptoms reported All other Systems: No Change from Baseline Past Medical History (General) - Patient Medical History Hx Seizures: Yes Hx Stroke: Yes Hx Dementia: No Hx Asthma: No Hx of COPD: Yes Hx Cardiac Disorders: Yes - A fib Hx Congestive Heart Failure: No Hx Pacemaker: No Hx Hypertension: Yes Hx Thyroid Disease: Yes Hx Diabetes: No Hx Gastroesophageal Reflux: Yes Hx Renal Disease: No Hx Cancer: No Hx of HIV: No Hx Hepatitis C: No Hx MRSA: No - Vaccination History Hx Tetanus, Diphtheria Vaccination: No Hx Influenza Vaccination: Yes Hx Pneumococcal Vaccination: Yes - Social History Hx Tobacco Use: Yes Hx Chewing Tobacco Use: No Hx Alcohol Use: No Hx Substance Use: No Hx Substance Use Treatment: No Hx Depression: No Hx Physical Abuse: No Hx Emotional Abuse: No Hx Suspected Abuse: No - Female History Patient : No Family Medical History - Family History Sister Living Status: Still Living Hx Family Cancer: Yes - breast Hx Family;Other: NONE Physical Exam - Physical Exam General Appearance: Alert, Comfortable, No apparent distress Eye Exam: bilateral normal Ears, Nose, Throat: hearing grossly normal, normal ENT inspection, normal pharynx Neck: full range of motion, supple Respiratory: lungs clear, normal breath sounds, no respiratory distress, no accessory muscle use Cardiovascular/Chest: normal peripheral pulses, no edema, irregularly irregular - rate controlled however Peripheral Pulses: radial,right: 2+, radial,left: 2+, dorsalis pedis,right: 2+, dorsalis pedis,left: 2+ Gastrointestinal/Abdominal: non tender, soft Rectal Exam: deferred Back Exam: no CVA tenderness, no vertebral tenderness Extremity: non-tender, normal inspection, no pedal edema, normal capillary refil l 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, alert, normal mood/affect, other - she does have significant dementia Skin Exam: normal color Comments: Vital Signs - 24 hr 03/16/18 03/16/18 03/16/18 11:03 11:45 12:10 Temperature 97.6 F Pulse Rate [ 67 73 63 Apical] Respiratory 26 H 16 16 Rate Blood Pressure 156/84 147/88 173/86 [Left Arm] O2 Sat by Pulse 96 98 98 Oximetry 03/16/18 03/16/18 12:11 12:12 Temperature Pulse Rate [ 79 84 Apical] Respiratory 16 20 Rate Blood Pressure 149/84 147/85 [Left Arm] O2 Sat by Pulse 100 Oximetry Progress - Progress Progress: 03/16/18 12:54 the patient a 77-year-old female with some dementia presenting to the emergency room secondary to symptoms of intermittent palpitations she believes for the last week or so. Telemetry monitoring here shows good rate control of her atrial fibrillation with only very brief 10 the 20 second episodes of her heart rate going up above 100. it is possible that she may be feeling these. If this continues to be a nuisance for the patient then a small dose of a beta robe may be beneficial. I'm going to defer on this at this time. I want her to folloup with her primary care doctor in the coming week. Additionally the patient has a right lateral ankle sprain. She does want to try walking boot. If she finds that this is too cumbersome for her or caregivers feel that this is increasing her fall risk, then it can be discontinued. Otherwise wearing it for 2-3 weeks while ambulating may reduce discomfort and speed up healing some. laboratory work and chest and ankle x-rays are reassuring. Follow up with primary care doctor later this week. ER warnings were given for any worsening. - Results/Orders Results/Orders: 03/16/18 11:04 Telemetry .CONTINUOUS 03/16/18 11:07 Vital Signs-Tilt PRN 03/16/18 12:49 DME - Durable Medical Equip .ONCE Laboratory Results - last 24 hr 03/16/18 03/16/18 03/16/18 11:48 11:48 11:48 WBC 6.5 RBC 4.25 Hgb 11.0 L Hct 34.2 L MCV 80.4 L MCH 25.8 L MCHC 32.2 L RDW 17.5 H Plt Count 228 MPV 7.5 Absolute Neuts (auto) 3.70 Absolute Lymphs (auto) 2.10 Absolute Monos (auto) 0.50 Absolute Eos (auto) 0.10 Absolute Basos (auto) 0.00 Neutrophils % 57.6 Lymphocytes % 32.2 Monocytes % 8.2 Eosinophils % 1.3 Basophils % 0.7 PT 20.4 H INR 2.05 H PTT (SP) 30.8 Sodium 137 Potassium 3.9 Chloride 104 Carbon Dioxide 24 Anion Gap 12.9 BUN 21 H Creatinine 1.06 BUN/Creatinine Ratio 19.8 Random Glucose 105 Serum Osmolality 277.2 Calcium 9.3 Magnesium 1.9 Total Bilirubin 0.6 AST 30 ALT 21 Alkaline Phosphatase 86 Creatine Kinase 74 CK-MB (CK-2) 2.9 CK-MB (CK-2) % Not Reportable Troponin I < 0.02 B-Natriuretic Peptide 167.0 H Serum Total Protein 7.5 Albumin 4.3 Globulin 3.2 Albumin/Globulin Ratio 1.3 Amylase 38 Urine Color Urine Appearance Urine pH Ur Specific [place] Urine Protein Urine Glucose (UA) Urine Ketones Urine Blood Urine Nitrite Urine Bilirubin Urine Urobilinogen Ur Leukocyte Esterase Urine RBC Urine WBC Ur Epithelial Cells Urine Bacteria Urine Mucus 03/16/18 12:07 WBC RBC Hgb Hct MCV MCH MCHC RDW Plt Count MPV Absolute Neuts (auto) Absolute Lymphs (auto) Absolute Monos (auto) Absolute Eos (auto) Absolute Basos (auto) Neutrophils % Lymphocytes % Monocytes % Eosinophils % Basophils % PT INR PTT (SP) Sodium Potassium Chloride Carbon Dioxide Anion Gap BUN Creatinine BUN/Creatinine Ratio Random Glucose Serum Osmolality Calcium Magnesium Total Bilirubin AST ALT Alkaline Phosphatase Creatine Kinase CK-MB (CK-2) CK-MB (CK-2) % Troponin I B-Natriuretic Peptide Serum Total Protein Albumin Globulin Albumin/Globulin Ratio Amylase Urine Color Yellow Urine Appearance Clear Urine pH 6.5 Ur Specific [place] 1.015 Urine Protein Negative Urine Glucose (UA) Negative Urine Ketones Negative Urine Blood Small H Urine Nitrite Negative Urine Bilirubin Negative Urine Urobilinogen 0.2 Ur Leukocyte Esterase Negative Urine RBC 0-1 Urine WBC 0-1 Ur Epithelial Cells 1-3 Urine Bacteria 0 Urine Mucus Small chest x-ray appears benign. EKG has some mild baseline tremor that cannot be avoided. She does have some axis deviation. Heart rate is 69 bpm. Corrected QT interval is within normal limits. No definitive ST segment or T-wave changes consistent with acute ischemia. She does have LVH changes. Departure - Departure Clinical Impression: Intermittent palpitations Right ankle sprain Qualifiers: Encounter type: initial encounter Involved ligament of ankle: unspecified ligament Qualified Code(s): S93.401A - Sprain of unspecified ligament of right ankle, initial encounter Disposition: Discharge to Home or Self Care Condition: Fair Departure Forms: ED Discharge - Pt. Copy, Patient Portal Self Enrollment Instructions: Palpitations (DC), Ankle Sprain (DC) Diet: regular diet Activity: increase activity as tolerated Referrals: Manuel Giang MD [Primary Care Provider] - 1-5 Days Home Medications: Ambulatory Orders Clonazepam 0.5 mg PO Q6H PRN 12/17/13 Digoxin 125 mcg PO DAILY 12/17/13 Escitalopram [Lexapro] 20 mg PO DAILY 12/17/13 HYDROcodone 10MG/APAP 325MG [[place] 325] 1 tab PO Q6H PRN 12/17/13 Levothyroxine Sodium 75 mcg PO DAILY 12/17/13 Phenytoin Sodium Cap Extended [Dilantin Cap] 100 mg PO BID 12/17/13 Phenytoin Sodium Cap Extended [Dilantin Cap] 200 mg PO BEDTIME 12/17/13 Polyethylene Glycol 3350 [Miralax] 17 gm PO PRN PRN 12/17/13 Potassium Chloride [Potassium Chloride ER] 20 meq PO BID 12/17/13 Quetiapine Fumarate [Seroquel] 200 mg PO BEDTIME 12/17/13 Rosuvastatin Calcium [Crestor] 20 mg PO DAILY 12/17/13 Diltiazem HCl Coated Beads [Diltiazem Cd] 180 mg PO DAILY 12/09/15 Linaclotide [Linzess] 145 mcg PO DAILY 12/09/15 Fluticasone Furoate-Vilanterol [Breo Ellipta] 1 inh IN DAILY 03/28/17 Linaclotide [Linzess] 145 mcg PO DAILY 03/28/17 Meloxicam 7.5 mg PO DAILY 03/28/17 Nitroglycerin [Nitrostat] 1 ea SL PRN PRN 03/28/17 Warfarin Sodium 2 mg PO DAILY 03/28/17 Cefuroxime Axetil [Ceftin] 500 mg PO Q12H 7 Days #14 tablet 05/23/17 Additional Instructions: the patient a 77-year-old female with some dementia presenting to the emergency room secondary to symptoms of intermittent palpitations she believes for the last week or so. Telemetry monitoring here shows good rate control of her atrial fibrillation with only very brief 10 the 20 second episodes of her heart rate going up above 100. it is possible that she may be feeling these. If this continues to be a nuisance for the patient then a small dose of a beta robe may be beneficial. I'm going to defer on this at this time. I want her to folloup with her primary care doctor in the coming week. Additionally the patient has a right lateral ankle sprain. She does want to try walking boot. If she finds that this is too cumbersome for her or caregivers feel that this is increasing her fall risk, then it can be discontinued. Otherwise wearing it for 2-3 weeks while ambulating may reduce discomfort and speed up healing some. laboratory work and chest and ankle x-rays are reassuring. Follow up with primary care doctor later this week. ER warnings were given for any worsening.
[2018-03-16 13:40] VITALS: BP 163/73; O2SAT 98
== END 2018-03-16 13:20 | disposition home or self-care (01) ==
LOC: ER 10:46
DX: S93.401A Sprain of unspecified ligament of right ankle, initial encounter (principal); I51.7 Cardiomegaly; J44.9 Chronic obstructive pulmonary disease, unspecified; I48.91 Unspecified atrial fibrillation; F03.90 Unspecified dementia, unspecified severity, without behavioral disturbance, psychotic disturbance, mood disturbance, and anxiety; I10 Essential (primary) hypertension; E07.9 Disorder of thyroid, unspecified; K21.9 Gastro-esophageal reflux disease without esophagitis; R56.9 Unspecified convulsions; Z87.891 Personal history of nicotine dependence; Z86.73 Personal history of transient ischemic attack (TIA), and cerebral infarction without residual deficits; Z79.899 Other long term (current) drug therapy; Z88.1 Allergy status to other antibiotic agents; X58.XXXA Exposure to other specified factors, initial encounter; Y92.9 Unspecified place or not applicable

== ENCOUNTER → 2018-05-22 | Outpatient (CLI) | payer MEDICARE, MEDICAID | LOC: YCHH 13:32 | PROVIDERS: ATTEND Family Medicine | DX: I25.119 Atherosclerotic heart disease of native coronary artery with unspecified angina pectoris (principal); R68.89 Other general symptoms and signs; N39.0 Urinary tract infection, site not specified; Z79.82 Long term (current) use of aspirin; Z79.01 Long term (current) use of anticoagulants ==

== ENCOUNTER 2018-05-26 20:32 | Emergency (ER) | payer MEDICARE, MEDICAID ==
[2018-05-26] MEDS ORDERED: SODIUM CHLORIDE 0.9% 1000ML 1,000 ML IVS ONE (21:37)
--- NOTE | 2018-05-26 21:38 | RAD ---
EXAM: Abdomen Series CLINICAL INDICATION: Abdominal pain COMPARISON: There is no previous study for comparison. FINDINGS: A single view of the chest reveals the heart size is normal. The pulmonary vessels are unremarkable. The lungs are clear. There is no evidence of free air under the hemidiaphragms. Three views of the abdomen were obtained. There is a nonspecific bowel gas pattern with no radiographic evidence of bowel obstruction. There are no dilated loops of small bowel. There is no evidence of pneumoperitoneum or pathologic calcifications. IMPRESSION: No evidence of an acute intraabdominal process. Electronically signed by: Schuyler Escalante MD 05/26/2018 9:35 PM CDT
--- NOTE | 2018-05-26 22:59 | CT ---
EXAM DESCRIPTION: Head CLINICAL HISTORY: falls with slurred speech COMPARISON: CT head November 26, 2017 TECHNIQUE: Multiple helical axial tomographic images were obtained of the head without intravenous contrast. Coronal and sagittal reformatted images were obtained. This exam was performed according to our departmental dose-optimization program, which includes automated exposure control, adjustment of the mA and/or kV according to patient size and/or use of iterative reconstruction technique. FINDINGS: Generalized brain volume loss is present. Small area of encephalomalacia in the right occipital lobe is again noted. A few small areas of hypoattenuation in the cerebral white matter are present suggestive of chronic microvasculature ischemic changes. There is no acute intracranial hemorrhage. No mass. No midline shift. No ventriculomegaly. Sarah-white matter differentiation is maintained. Moderate ethmoid and sphenoid sinus mucosal thickening is noted. Mastoid air cells and middle ear spaces are clear. Changes of lens replacement noted. Osseous structures are unremarkable. Small rounded soft tissue density structure in the left parietal scalp is unchanged. IMPRESSION: No acute intracranial process. Electronically signed by: Hector Lawson MD 05/26/2018 10:56 PM CDT
--- NOTE | 2018-05-26 23:37 | ED.PDOC ---
History of Present Illness - General Chief Complaint: Neuro Symptoms/Deficits Stated Complaint: slurred speech, stumbing Time Seen by Provider: 05/26/18 20:43 Source: patient Exam Limitations: no limitations - History of Present Illness Initial Comments: the patient is a 77-year-old female presenting to the emergency room with one of her caregivers secondary to some mild slurring of speech today along with some gait unsteadiness leading to a couple of near falls. The patient does appear to be tired. Mucous membranes are actually fairly dry. She is alert and oriented. She is pleasant and cooperative. No focal neurological deficits. She does take numerous sedating-type medications. The patient does have very significant bradycardia down into the mid to low 40s when at rest. The patient's tilt positive for blood pressure drop of approximately 30 points with standing. Timing/Duration: 24 hours Severity: mild Improving Factors: nothing Worsening Factors: nothing Associated Symptoms: denies symptoms - near syncope, malaise, weakness Allergies/Adverse Reactions: Allergies Levofloxacin [From Levaquin] Allergy (Verified 03/16/17 23:07) Home Medications: Ambulatory Orders Clonazepam 1 - 2 tablet PO BEDTIME PRN 12/17/13 Digoxin 125 mcg PO SUTUTHSA 12/17/13 Escitalopram [Lexapro] 20 mg PO DAILY 12/17/13 HYDROcodone 10MG/APAP 325MG [[place] ] 1 tab PO Q6H PRN 12/17/13 Levothyroxine Sodium 75 mcg PO DAILY 12/17/13 Phenytoin Sodium Cap Extended [Dilantin Cap] 100 mg PO BID 12/17/13 Potassium Chloride [Potassium Chloride ER] 20 meq PO BID 12/17/13 Quetiapine Fumarate [Seroquel] 200 mg PO BEDTIME 12/17/13 Rosuvastatin Calcium [Crestor] 20 mg PO DAILY 12/17/13 Diltiazem HCl Coated Beads [Diltiazem Cd] 180 mg PO DAILY 12/09/15 Linaclotide [Linzess] 145 mcg PO DAILY 03/28/17 Meloxicam 7.5 mg PO DAILY 03/28/17 Nitroglycerin [Nitrostat] 1 ea SL PRN PRN 03/28/17 Warfarin Sodium 2 mg PO BEDTIME 03/28/17 Calcium Carbonate-Cholecalcife [Os-Dru 500 + D] 1 tab PO BID 03/16/18 Digoxin [Digox] 2 tablet PO MOWEFR 03/16/18 Melatonin 5 mg PO BEDTIME 03/16/18 Albuterol Sulfate [Ventolin Hfa] 108 inhaler INH Q6HR 05/26/18 Cefprozil 250 mg PO BID 05/26/18 Review of Systems - Review of Systems Constitutional: States: malaise, weakness - generalized EENTM: States: throat pain - taking cefazolin Respiratory: States: no symptoms reported Cardiology: States: no symptoms reported Gastrointestinal/Abdominal: States: no symptoms reported Genitourinary: States: no symptoms reported Musculoskeletal: States: no symptoms reported Skin: States: no symptoms reported Neurological: States: no symptoms reported Endocrine: States: no symptoms reported All other Systems: No Change from Baseline Past Medical History (General) - Patient Medical History Hx Seizures: Yes Hx Stroke: Yes Hx Dementia: No Hx Asthma: No Hx of COPD: Yes Hx Cardiac Disorders: Yes - A fib Hx Congestive Heart Failure: No Hx Pacemaker: No Hx Hypertension: Yes Hx Thyroid Disease: Yes Hx Diabetes: No Hx Gastroesophageal Reflux: Yes Hx Renal Disease: No Hx Cancer: No Hx of HIV: No Hx Hepatitis C: No Hx MRSA: No - Vaccination History Hx Tetanus, Diphtheria Vaccination: No Hx Influenza Vaccination: Yes Hx Pneumococcal Vaccination: Yes - Social History Hx Tobacco Use: Yes Hx Chewing Tobacco Use: No Hx Alcohol Use: No Hx Substance Use: No Hx Substance Use Treatment: No Hx Depression: No Hx Physical Abuse: No Hx Emotional Abuse: No Hx Suspected Abuse: No - Female History Patient : No - Triage Comment ED Triage Comment: started slurred speech and stumbling around 3PM, treated Sunday for strep throat, per family Family Medical History - Family History Sister Living Status: Still Living Hx Family Cancer: Yes - breast Hx Family;Other: NONE Physical Exam - Physical Exam General Appearance: Comfortable, No apparent distress, Other - mildly drowsy Eye Exam: bilateral normal Ears, Nose, Throat: hearing grossly normal, normal ENT inspection - mucous membranes are fairly dry Neck: full range of motion, supple Respiratory: lungs clear, normal breath sounds, no respiratory distress, no accessory muscle use Cardiovascular/Chest: normal peripheral pulses, no edema, bradycardia - irregular Peripheral Pulses: radial,right: 2+, radial,left: 2+ Gastrointestinal/Abdominal: non tender, soft Rectal Exam: deferred Back Exam: no CVA tenderness, no vertebral tenderness Extremity: non-tender, normal inspection, no pedal edema, normal capillary refill 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 No new focal neurological deficits. Skin Exam: normal color Comments: Vital Signs - 24 hr 05/26/18 05/26/18 05/26/18 20:42 20:47 21:41 Temperature 96.8 F L Pulse Rate [ 48 L 58 L 45 L Left] Respiratory 16 Rate Blood Pressure 137/67 125/58 [Left Arm] O2 Sat by Pulse 99 Oximetry 05/26/18 05/26/18 21:42 22:22 Temperature Pulse Rate [ 70 50 L Left] Respiratory 12 Rate Blood Pressure 106/53 132/76 [Left Arm] O2 Sat by Pulse 96 Oximetry Progress - Progress Progress: 05/26/18 23:39 the patient's a 77-year-old female presenting to the emergency room secondary to slurring of speech and gait unsteadiness. She does have some dehydration and significant orthostasis along with significant bradycardia. This may also be complicated by the dehydration potentiating the sedative effects of numerous medications that she is taking. The patient was given a liter of IV fluids to help with rehydration. I'm going to recommend that the patient decrease her digoxin dose down to 1 tablet daily. She was taking 2 tablets 3 days a week. she needs to follow back up with her primary care doctor in a few days for repeat evaluation to make sure that her heart rates are a lit tle higher. I'm not changing the diltiazem dose at this time nor any of the doses of her sedative type medications. She does need to keep herself well hydrated. She needs to ambulate carefully to prevent falls. ER warnings were given for any significant worsening. - Results/Orders Results/Orders: head CT shows no acute pathology. Abdominal series shows no acute pathology. EKG shows atrial fibrillation at 51 bpm. Normal axis. Normal R-wave progression. No ST segment or T-wave changes consistent with current ischemia. Normal QT interval. Laboratory Tests 05/26/18 05/26/18 05/26/18 20:48 20:48 20:48 WBC 7.7 RBC 4.17 L Hgb 10.6 L Hct 33.1 L MCV 79.2 L MCH 25.3 L MCHC 31.9 L RDW 17.3 H Plt Count 251 MPV 7.1 L Absolute Neuts (auto) 4.20 Absolute Lymphs (auto) 2.50 Absolute Monos (auto) 0.80 Absolute Eos (auto) 0.10 Absolute Basos (auto) 0.00 Neutrophils % 55.4 Lymphocytes % 32.6 Monocytes % 9.9 H Eosinophils % 1.7 Basophils % 0.4 PT 33.9 H* INR 3.43 H PTT (SP) 43.1 H Sodium 136 Potassium 4.8 Chloride 105 Carbon Dioxide 23 Anion Gap 12.8 BUN 21 H Creatinine 1.02 BUN/Creatinine Ratio 20.6 H Random Glucose 95 Serum Osmolality 274.7 L Lactic Acid Calcium 8.8 Magnesium 2.0 Total Bilirubin 0.3 AST 49 H ALT 44 Alkaline Phosphatase 100 Creatine Kinase 39 CK-MB (CK-2) 2.3 CK-MB (CK-2) % Not Reportable Troponin I < 0.02 B-Natriuretic Peptide 86.2 Serum Total Protein 6.8 Albumin 3.6 Globulin 3.2 Albumin/Globulin Ratio 1.1 TSH Urine Color Urine Appearance Urine pH Ur Specific [place] Urine Protein Urine Glucose (UA) Urine Ketones Urine Blood Urine Nitrite Urine Bilirubin Urine Urobilinogen Ur Leukocyte Esterase Urine RBC Urine WBC Ur Epithelial Cells Urine Bacteria Digoxin Phenytoin 05/26/18 05/26/18 05/26/18 20:48 20:50 20:50 WBC RBC Hgb Hct MCV MCH MCHC RDW Plt Count MPV Absolute Neuts (auto) Absolute Lymphs (auto) Absolute Monos (auto) Absolute Eos (auto) Absolute Basos (auto) Neutrophils % Lymphocytes % Monocytes % Eosinophils % Basophils % PT INR PTT (SP) Sodium Potassium Chloride Carbon Dioxide Anion Gap BUN Creatinine BUN/Creatinine Ratio Random Glucose Serum Osmolality Lactic Acid 0.8 Calcium Magnesium Total Bilirubin AST ALT Alkaline Phosphatase Creatine Kinase CK-MB (CK-2) CK-MB (CK-2) % Troponin I B-Natriuretic Peptide Serum Total Protein Albumin Globulin Albumin/Globulin Ratio TSH 2.97 Urine Color Urine Appearance Urine pH Ur Specific [place] Urine Protein Urine Glucose (UA) Urine Ketones Urine Blood Urine Nitrite Urine Bilirubin Urine Urobilinogen Ur Leukocyte Esterase Urine RBC Urine WBC Ur Epithelial Cells Urine Bacteria Digoxin 1.5 Phenytoin 15.3 05/26/18 22:10 WBC RBC Hgb Hct MCV MCH MCHC RDW Plt Count MPV Absolute Neuts (auto) Absolute Lymphs (auto) Absolute Monos (auto) Absolute Eos (auto) Absolute Basos (auto) Neutrophils % Lymphocytes % Monocytes % Eosinophils % Basophils % PT INR PTT (SP) Sodium Potassium Chloride Carbon Dioxide Anion Gap BUN Creatinine BUN/Creatinine Ratio Random Glucose Serum Osmolality Lactic Acid Calcium Magnesium Total Bilirubin AST ALT Alkaline Phosphatase Creatine Kinase CK-MB (CK-2) CK-MB (CK-2) % Troponin I B-Natriuretic Peptide Serum Total Protein Albumin Globulin Albumin/Globulin Ratio TSH Urine Color Yellow Urine Appearance Sl cloudy Urine pH 6.0 Ur Specific [place] 1.015 Urine Protein Negative Urine Glucose (UA) Negative Urine Ketones Negative Urine Blood Trace-lysed H Urine Nitrite Negative Urine Bilirubin Negative Urine Urobilinogen 0.2 Ur Leukocyte Esterase Negative Urine RBC 0-1 Urine WBC 0-1 Ur Epithelial Cells 10-20 Urine Bacteria 0 Digoxin Phenytoin Departure - Departure Clinical Impression: Orthostasis, Dehydration, Bradycardia with 41-50 beats per minute, Medication side effect Disposition: Discharge to Home or Self Care Condition: Fair Departure Forms: ED Discharge - Pt. Copy, Patient Portal Self Enrollment Instructions: Orthostatic Hypotension (DC), Dehydration, Adult (DC), Bradycardia (DC) Diet: regular diet Activity: increase activity as tolerated Referrals: Manuel Giang MD [Primary Care Provider] - 1-2 Days Home Medications: Ambulatory Orders Clonazepam 1 - 2 tablet PO BEDTIME PRN 12/17/13 Digoxin 125 mcg PO SUTUTHSA 12/17/13 Escitalopram [Lexapro] 20 mg PO DAILY 12/17/13 HYDROcodone 10MG/APAP 325MG [[place] ] 1 tab PO Q6H PRN 12/17/13 Levothyroxine Sodium 75 mcg PO DAILY 12/17/13 Phenytoin Sodium Cap Extended [Dilantin Cap] 100 mg PO BID 12/17/13 Potassium Chloride [Potassium Chloride ER] 20 meq PO BID 12/17/13 Quetiapine Fumarate [Seroquel] 200 mg PO BEDTIME 12/17/13 Rosuvastatin Calcium [Crestor] 20 mg PO DAILY 12/17/13 Diltiazem HCl Coated Beads [Diltiazem Cd] 180 mg PO DAILY 12/09/15 Linaclotide [Linzess] 145 mcg PO DAILY 03/28/17 Meloxicam 7.5 mg PO DAILY 03/28/17 Nitroglycerin [Nitrostat] 1 ea SL PRN PRN 03/28/17 Warfarin Sodium 2 mg PO BEDTIME 03/28/17 Calcium Carbonate-Cholecalcife [Os-Dru 500 + D] 1 tab PO BID 03/16/18 Digoxin [Digox] 2 tablet PO MOWEFR 03/16/18 Melatonin 5 mg PO BEDTIME 03/16/18 Albuterol Sulfate [Ventolin Hfa] 108 inhaler INH Q6HR 05/26/18 Cefprozil 250 mg PO BID 05/26/18 Additional Instructions: the patient's a 77-year-old female presenting to the emergency room secondary to slurring of speech and gait unsteadiness. She does have some dehydration and significant orthostasis along with significant bradycardia. This may also be complicated by the dehydration potentiating the sedative effects of numerous medications that she is taking. The patient was given a liter of IV fluids to help with rehydration. I'm going to recommend that the patient decrease her digoxin dose down to 1 tablet daily. She was taking 2 tablets 3 days a week. she needs to follow back up with her primary care doctor in a few days for repeat evaluation to make sure that her heart rates are a little higher. I'm not changing the diltiazem dose at this time nor any of the doses of her sedative type medications. She does need to keep herself well hydrated. She needs to ambulate carefully to prevent falls. ER warnings were given for any significant worsening.
[2018-05-27 00:02] VITALS: BP 126/85; TEMP 97.4; O2SAT 98
== END 2018-05-27 00:02 | disposition home or self-care (01) ==
LOC: ER 20:32
DX: I95.1 Orthostatic hypotension (principal); E86.0 Dehydration; R00.1 Bradycardia, unspecified; T50.905A Adverse effect of unspecified drugs, medicaments and biological substances, initial encounter; I48.91 Unspecified atrial fibrillation; I10 Essential (primary) hypertension; E07.9 Disorder of thyroid, unspecified; K21.9 Gastro-esophageal reflux disease without esophagitis; R56.9 Unspecified convulsions; J44.9 Chronic obstructive pulmonary disease, unspecified; Z86.73 Personal history of transient ischemic attack (TIA), and cerebral infarction without residual deficits; Z87.891 Personal history of nicotine dependence; Z79.899 Other long term (current) drug therapy; Z88.1 Allergy status to other antibiotic agents
CPT/HCPCS: 36415; 70450; 74019; 80053; 80162; 80185; 81001; 82550; 82553; 83605; 83735; 83880; 84443; 84484; 85025; 85610; 85730; 87502; 93005; J7030

== ENCOUNTER → 2018-05-29 | Outpatient (CLI) | payer MEDICARE, MEDICAID | LOC: YCHH 10:52 | PROVIDERS: ATTEND Family Medicine | DX: I25.119 Atherosclerotic heart disease of native coronary artery with unspecified angina pectoris (principal); E03.9 Hypothyroidism, unspecified; D64.9 Anemia, unspecified; Z79.01 Long term (current) use of anticoagulants ==

== ENCOUNTER 2018-08-18 08:37 | Emergency (ER) | payer MEDICARE, MEDICAID ==
[2018-08-18 08:44] VITALS: O2SAT 97
[2018-08-18] MEDS ORDERED: CETIRIZINE HCL 10 MG TAB PO ONE (08:52)
--- NOTE | 2018-08-18 10:17 | ED.PDOC ---
History of Present Illness - General Chief Complaint: Skin/Abrasion/Tear Time Seen by Provider: 08/18/18 08:50 Source: patient Exam Limitations: no limitations - History of Present Illness Initial Comments: the patient is a 77-year-old female presenting to emergency room secondary to reports of a rash on her arms. I do not actually see any rash. She reports some pruritus for the last couple of days. She has been on oral Keflex for urinary tract infection. She does have some mild bruising to her arms but she does take a significant blood thinner. She is alert and oriented. She is pleasant and cooperative. Vital signs are stable. Timing/Duration: other - 2-3 days Severity: mild Improving Factors: nothing Worsening Factors: nothing Associated Symptoms: denies symptoms Allergies/Adverse Reactions: Allergies Levofloxacin [From Levaquin] Allergy (Verified 08/18/18 08:44) Home Medications: Ambulatory Orders Clonazepam 1 - 2 tablet PO Q6H PRN 12/17/13 Digoxin 125 mcg PO SUTUTHSA 12/17/13 Escitalopram [Lexapro] 20 mg PO DAILY 12/17/13 HYDROcodone 10MG/APAP 325MG [[place] ] 1 - 2 tab PO Q6H PRN 12/17/13 Levothyroxine Sodium 75 mcg PO DAILY 12/17/13 Phenytoin Sodium Cap Extended [Dilantin Cap] 100 mg PO DAILY 12/17/13 Potassium Chloride [Potassium Chloride ER] 20 meq PO BID 12/17/13 Quetiapine Fumarate [Seroquel] 200 mg PO BEDTIME 12/17/13 Rosuvastatin Calcium [Crestor] 20 mg PO DAILY 12/17/13 Diltiazem HCl Coated Beads [Diltiazem Cd] 180 mg PO DAILY 12/09/15 Linaclotide [Linzess] 145 mcg PO DAILY 03/28/17 Meloxicam 7.5 mg PO DAILY 03/28/17 Warfarin Sodium 2 mg PO BEDTIME 03/28/17 Calcium Carbonate-Cholecalcife [Os-Dru 500 + D] 1 tab PO BID 03/16/18 Digoxin [Digox] 2 tablet PO MOWEFR 03/16/18 Melatonin 5 mg PO BEDTIME 03/16/18 Albuterol Sulfate [Ventolin Hfa] 108 inhaler INH Q6HR 05/26/18 Phenytoin Sodium Extended 200 mg PO BEDTIME 08/18/18 Sulfa/Trimeth 800/160 (Ds) Tab [Bactrim DS Tab] 1 ea PO BID #10 tab 08/18/18 Review of Systems - Review of Systems Constitutional: States: no symptoms reported EENTM: States: no symptoms reported Respiratory: States: no symptoms reported Cardiology: States: no symptoms reported Gastrointestinal/Abdominal: States: no symptoms reported Genitourinary: States: no symptoms reported Musculoskeletal: States: no symptoms reported Skin: States: see HPI Neurological: States: no symptoms reported Endocrine: States: no symptoms reported All other Systems: No Change from Baseline Past Medical History (General) - Patient Medical History Hx Seizures: Yes Hx Stroke: Yes Hx Dementia: No Hx Asthma: No Hx of COPD: Yes Hx Cardiac Disorders: Yes - A fib, hypercholeterolemia Hx Congestive Heart Failure: Yes Hx Pacemaker: No Hx Hypertension: Yes Hx Thyroid Disease: Yes Hx Diabetes: No Hx Gastroesophageal Reflux: Yes Hx Renal Disease: No Hx Cancer: No Hx of HIV: No Hx Hepatitis C: No Hx MRSA: No - Vaccination History Hx Tetanus, Diphtheria Vaccination: Yes Hx Influenza Vaccination: Yes - 2018 Hx Pneumococcal Vaccination: Yes - Social History Hx Tobacco Use: No Hx Chewing Tobacco Use: No Hx Alcohol Use: No Hx Substance Use: No Hx Substance Use Treatment: No Hx Depression: No Hx Physical Abuse: No Hx Emotional Abuse: No Hx Suspected Abuse: No - Female History Patient : No Family Medical History - Family History Sister Living Status: Still Living Hx Family Cancer: Yes - breast Hx Family;Other: NONE Physical Exam - Physical Exam General Appearance: Alert, Comfortable, No apparent distress Eye Exam: bilateral normal Ears, Nose, Throat: hearing grossly normal, normal ENT inspection, normal pharynx Neck: full range of motion, supple Respiratory: lungs clear, normal breath sounds, no respiratory distress, no accessory muscle use Cardiovascular/Chest: normal peripheral pulses, no edema, other - irregular rhythm borderline tachycardia Peripheral Pulses: radial,right: 2+, radial,left: 2+ Gastrointestinal/Abdominal: non tender, soft Rectal Exam: deferred Back Exam: no CVA tenderness, no vertebral tenderness Extremity: non-tender, normal inspection, no pedal edema, normal capillary refill 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 She does have small amounts of bruising which is not unusual given the blood thinner use. Comments: Vital Signs - 24 hr 08/18/18 08/18/18 08:40 10:00 Temperature 99.2 F Pulse Rate [ 106 H 73 Left Radial] Respiratory 20 18 Rate Blood Pressure 160/96 152/83 [Left Arm] O2 Sat by Pulse 97 97 Oximetry Progress - Progress Progress: 08/18/18 10:17 the patient's a 77-year-old female presenting secondary to itching of her arms. It is possible that this may be a very mild allergic reaction. She can take Zyrtec once daily for the next 3 or 4 days. She needs to use a hydrating soap such as Dove. She can use Cetaphil or Vaseline intensive care lotion as well. Laboratory work is reassuring except she does still have a urinary tract infection. Based upon sensitivities from the urine culture done 5 days ago, the patient is going to be switched over to Bactrim, and she can discontinue the Keflex. ER warnings were given for any worsening. Keep routine follow-up with primary care doctor. - Results/Orders Results/Orders: Laboratory Tests 08/18/18 08/18/18 08/18/18 09:10 09:10 09:10 WBC 8.0 RBC 4.06 L Hgb 10.1 L Hct 32.1 L MCV 79.0 L MCH 25.0 L MCHC 31.7 L RDW 16.2 H Plt Count 200 MPV 7.1 L Absolute Neuts (auto) 5.70 Absolute Lymphs (auto) 1.50 Absolute Monos (auto) 0.70 Absolute Eos (auto) 0.10 Absolute Basos (auto) 0.00 Neutrophils % 71.0 Lymphocytes % 18.2 L Monocytes % 9.0 Eosinophils % 1.3 Basophils % 0.5 PT 20.5 H INR 2.06 H PTT (SP) 29.9 Sodium 137 Potassium 4.0 Chloride 103 Carbon Dioxide 24 Anion Gap 14.0 BUN 25 H Creatinine 0.99 BUN/Creatinine Ratio 25.3 H Random Glucose 104 Serum Osmolality 278.5 Calcium 9.0 Total Bilirubin 0.4 AST 34 ALT 26 Alkaline Phosphatase 60 Serum Total Protein 6.7 Albumin 3.9 Globulin 2.8 Albumin/Globulin Ratio 1.4 Urine Color Urine Appearance Urine pH Ur Specific [place] Urine Protein Urine Glucose (UA) Urine Ketones Urine Blood Urine Nitrite Urine Bilirubin Urine Urobilinogen Ur Leukocyte Esterase Urine RBC Urine WBC Ur Epithelial Cells Urine Bacteria 08/18/18 09:30 WBC RBC Hgb Hct MCV MCH MCHC RDW Plt Count MPV Absolute Neuts (auto) Absolute Lymphs (auto) Absolute Monos (auto) Absolute Eos (auto) Absolute Basos (auto) Neutrophils % Lymphocytes % Monocytes % Eosinophils % Basophils % PT INR PTT (SP) Sodium Potassium Chloride Carbon Dioxide Anion Gap BUN Creatinine BUN/Creatinine Ratio Random Glucose Serum Osmolality Calcium Total Bilirubin AST ALT Alkaline Phosphatase Serum Total Protein Albumin Globulin Albumin/Globulin Ratio Urine Color Yellow Urine Appearance Sl cloudy Urine pH 7.5 Ur Specific [place] 1.015 Urine Protein Negative Urine Glucose (UA) Negative Urine Ketones Negative Urine Blood Small H Urine Nitrite Positive H Urine Bilirubin Negative Urine Urobilinogen 0.2 Ur Leukocyte Esterase Small H Urine RBC 1-3 Urine WBC 5-10 H Ur Epithelial Cells 3-5 Urine Bacteria 2+ H Departure - Departure Clinical Impression: Cystitis Atopic dermatitis Qualifiers: Atopic dermatitis type: unspecified Qualified Code(s): L20.9 - Atopic dermatitis, unspecified Disposition: Discharge to Home or Self Care Condition: Fair Departure Forms: ED Discharge - Pt. Copy, Patient Portal Self Enrollment Instructions: Eczema (Atopic Dermatitis), Urinary Tract Infection, Adult (DC) Diet: regular diet Activity: increase activity as tolerated Referrals: Manuel Giang MD [Primary Care Provider] - 1-2 Weeks Prescriptions: Sulfa/Trimeth 800/160 (Ds) Tab [Bactrim DS Tab] 1 ea PO BID #10 tab Home Medications: Ambulatory Orders Clonazepam 1 - 2 tablet PO Q6H PRN 12/17/13 Digoxin 125 mcg PO SUTUTHSA 12/17/13 Escitalopram [Lexapro] 20 mg PO DAILY 12/17/13 HYDROcodone 10MG/APAP 325MG [[place] 103[address]] 1 - 2 tab PO Q6H PRN 12/17/13 Levothyroxine Sodium 75 mcg PO DAILY 12/17/13 Phenytoin Sodium Cap Extended [Dilantin Cap] 100 mg PO DAILY 12/17/13 Potassium Chloride [Potassium Chloride ER] 20 meq PO BID 12/17/13 Quetiapine Fumarate [Seroquel] 200 mg PO BEDTIME 12/17/13 Rosuvastatin Calcium [Crestor] 20 mg PO DAILY 12/17/13 Diltiazem HCl Coated Beads [Diltiazem Cd] 180 mg PO DAILY 12/09/15 Linaclotide [Linzess] 145 mcg PO DAILY 03/28/17 Meloxicam 7.5 mg PO DAILY 03/28/17 Warfarin Sodium 2 mg PO BEDTIME 03/28/17 Calcium Carbonate-Cholecalcife [Os-Dru 500 + D] 1 tab PO BID 03/16/18 Digoxin [Digox] 2 tablet PO MOWEFR 03/16/18 Melatonin 5 mg PO BEDTIME 03/16/18 Albuterol Sulfate [Ventolin Hfa] 108 inhaler INH Q6HR 05/26/18 Phenytoin Sodium Extended 200 mg PO BEDTIME 08/18/18 Sulfa/Trimeth 800/160 (Ds) Tab [Bactrim DS Tab] 1 ea PO BID #10 tab 08/18/18 Additional Instructions: the patient's a 77-year-old female presenting secondary to itching of her arms. It is possible that this may be a very mild allergic reaction. She can take Zyrtec once daily for the next 3 or 4 days. She needs to use a hydrating soap such as Dove. She can use Cetaphil or Vaseline intensive care lotion as well. Laboratory work is reassuring except she does still have a urinary tract infection. Based upon sensitivities from the urine culture done 5 days ago, the patient is going to be switched over to Bactrim, and she can discontinue the Keflex. ER warnings were given for any worsening. Keep routine follow-up with primary care doctor.
[2018-08-18 10:35] VITALS: BP 157/93; TEMP 98.5
== END 2018-08-18 10:30 | disposition home or self-care (01) ==
LOC: ER 08:37
DX: L20.9 Atopic dermatitis, unspecified (principal); N30.90 Cystitis, unspecified without hematuria; E07.9 Disorder of thyroid, unspecified; K21.9 Gastro-esophageal reflux disease without esophagitis; J44.9 Chronic obstructive pulmonary disease, unspecified; I48.91 Unspecified atrial fibrillation; E78.00 Pure hypercholesterolemia, unspecified; R56.9 Unspecified convulsions; I11.0 Hypertensive heart disease with heart failure; I50.9 Heart failure, unspecified; Z86.73 Personal history of transient ischemic attack (TIA), and cerebral infarction without residual deficits; Z79.01 Long term (current) use of anticoagulants; Z79.899 Other long term (current) drug therapy; Z88.1 Allergy status to other antibiotic agents

== ENCOUNTER → 2018-09-18 | Outpatient (CLI) | payer MEDICARE, MEDICAID | LOC: YCHH 10:12 | PROVIDERS: ATTEND Family Medicine | DX: I25.10 Atherosclerotic heart disease of native coronary artery without angina pectoris (principal); E03.9 Hypothyroidism, unspecified; R79.89 Other specified abnormal findings of blood chemistry; Z79.899 Other long term (current) drug therapy; Z51.81 Encounter for therapeutic drug level monitoring ==

== ENCOUNTER → 2018-11-06 | Outpatient (CLI) | payer MEDICARE, MEDICAID | LOC: YCHH 10:48 | PROVIDERS: ATTEND Family Medicine | DX: N39.0 Urinary tract infection, site not specified (principal) ==

== ENCOUNTER → 2018-11-26 | Outpatient (CLI) | payer MEDICARE, MEDICAID | LOC: YCHH 11:58 | PROVIDERS: ATTEND Family Medicine | DX: N39.0 Urinary tract infection, site not specified (principal) ==

== ENCOUNTER 2019-02-22 10:18 | Emergency (ER) | payer MEDICARE, MEDICAID ==
[2019-02-22] MEDS ORDERED: SODIUM CHLORIDE 0.9% (FLUSH) 10 ML SYG IV PRN (10:22)
--- NOTE | 2019-02-22 10:30 | ED.PDOC ---
History of Present Illness - General Stated Complaint: weakness and palpitations Time Seen by Provider: 02/22/19 10:21 Source: patient, family Additional Information: 78yo F history of afib on warfarin presents with reported sensation of diffuse weakness x 1 week. Reports occasional palpitations (started today) cough and congestion, otherwise denies fever, chest pain, SOB, diarrhea, bleeding, n/v, or fall. - History of Present Illness Allergies/Adverse Reactions: Allergies Levofloxacin [From Levaquin] Allergy (Verified 08/18/18 08:44) Home Medications: Ambulatory Orders Clonazepam 1 - 2 tablet PO Q6H PRN 12/17/13 Digoxin 125 mcg PO SUTUTHSA 12/17/13 Escitalopram [Lexapro] 20 mg PO DAILY 12/17/13 HYDROcodone 10MG/APAP 325MG [[place] ] 1 - 2 tab PO Q6H PRN 12/17/13 Levothyroxine Sodium 75 mcg PO DAILY 12/17/13 Phenytoin Sodium Cap Extended [Dilantin Cap] 100 mg PO DAILY 12/17/13 Potassium Chloride [Potassium Chloride ER] 20 meq PO BID 12/17/13 Quetiapine Fumarate [Seroquel] 200 mg PO BEDTIME 12/17/13 Rosuvastatin Calcium [Crestor] 20 mg PO DAILY 12/17/13 Diltiazem HCl Coated Beads [Diltiazem Cd] 180 mg PO DAILY 12/09/15 Linaclotide [Linzess] 145 mcg PO DAILY 03/28/17 Meloxicam 7.5 mg PO DAILY 03/28/17 Warfarin Sodium 2 mg PO BEDTIME 03/28/17 Calcium Carbonate-Cholecalcife [Os-Dru 500 + D] 1 tab PO BID 03/16/18 Digoxin [Digox] 2 tablet PO MOWEFR 03/16/18 Melatonin 5 mg PO BEDTIME 03/16/18 Albuterol Sulfate [Ventolin Hfa] 108 inhaler INH Q6HR 05/26/18 Phenytoin Sodium Extended 200 mg PO BEDTIME 08/18/18 Sulfa/Trimeth 800/160 (Ds) Tab [Bactrim DS Tab] 1 ea PO BID #10 tab 08/18/18 Review of Systems - Review of Systems Constitutional: States: weakness EENTM: States: no symptoms reported Respiratory: States: no symptoms reported Cardiology: States: palpitations. Denies: chest pain Gastrointestinal/Abdominal: States: no symptoms reported Genitourinary: States: no symptoms reported Musculoskeletal: States: no symptoms reported Skin: States: no symptoms reported Neurological: States: no symptoms reported Hematologic/Lymphatic: States: no symptoms reported All other Systems: Reviewed and Negative Past Medical History (General) - Patient Medical History Hx Seizures: Yes Hx Stroke: Yes Hx Dementia: No Hx Asthma: No Hx of COPD: Yes Hx Cardiac Disorders: Yes - A fib, hypercholeterolemia Hx Congestive Heart Failure: Yes Hx Pacemaker: No Hx Hypertension: Yes Hx Thyroid Disease: Yes Hx Diabetes: No Hx Gastroesophageal Reflux: Yes Hx Renal Disease: No Hx Cancer: No Hx of HIV: No Hx Hepatitis C: No Hx MRSA: No - Vaccination History Hx Tetanus, Diphtheria Vaccination: Yes Hx Influenza Vaccination: Yes - 2018 Hx Pneumococcal Vaccination: Yes - Social History Hx Tobacco Use: No Hx Chewing Tobacco Use: No Hx Alcohol Use: No Hx Substance Use: No Hx Substance Use Treatment: No Hx Depression: No Hx Physical Abuse: No Hx Emotional Abuse: No Hx Suspected Abuse: No - Female History Patient : No Family Medical History - Family History Sister Living Status: Still Living Hx Family Cancer: Yes - breast Hx Family;Other: NONE Physical Exam - Physical Exam General Appearance: Alert, Comfortable, Frail, No apparent distress Eyes, Ears, Nose, Throat Exam: PERRL/EOMI, normal ENT inspection Neck: non-tender, full range of motion Respiratory: chest non-tender, lungs clear, normal breath sounds Cardiovascular/Chest: normal peripheral pulses, no murmur, irregularly irregular Peripheral Pulses: radial,right: 2+, radial,left: 2+ Gastrointestinal/Abdominal: normal bowel sounds, non tender, soft Extremity: normal range of motion, non-tender Neurologic: medical practitioners II-XII nml as tested, no motor/sensory deficits, alert Skin Exam: normal color, warm/dry Lymphatic: no adenopathy Progress - Progress Progress: 02/22/19 11:54 No focal or lateralizing deficits and does not clinically appear CVA, ICH, or sepsis. She denies any CP or SOB and no other anginal equivalency noted. Low s uspicion for ACS, aortic pathology or acute blood loss anemia. Asymptomatic on recheck. Ambulatory. Symptoms greater than 1 week with negative trop and not acute ischemic changes on ECG. Unclear etiology of diffuse weakness, and discussed diagnostic uncertainty with patient. They voiced understanding and agreement with plan of care and discharge. ED warnings given. 02/22/19 11:58 Eleazar Copeland MD #[id number] - EKG/XRAY/CT EKG: Fibrillation Comments: 1022 Afib rate 77, normal axis, nonspecific T wave change, no STEMI XRAY: chest - no acute findings noted Departure - Departure Clinical Impression: Palpitations, Atrial fibrillation, Weakness Time of Disposition: 11:56 Disposition: Discharge to Home or Self Care Condition: Good Departure Forms: ED Discharge - Pt. Copy, Patient Portal Self Enrollment Instructions: DI for Chest Pain Diet: resume usual diet Activity: walking as tolerated Referrals: Manuel Giang MD [Primary Care Provider] - 1-2 Weeks Home Medications: Ambulatory Orders Clonazepam 1 - 2 tablet PO Q6H PRN 12/17/13 Digoxin 125 mcg PO SUTUTHSA 12/17/13 Escitalopram [Lexapro] 20 mg PO DAILY 12/17/13 HYDROcodone 10MG/APAP 325MG [[place] ] 1 - 2 tab PO Q6H PRN 12/17/13 Levothyroxine Sodium 75 mcg PO DAILY 12/17/13 Phenytoin Sodium Cap Extended [Dilantin Cap] 100 mg PO DAILY 12/17/13 Potassium Chloride [Potassium Chloride ER] 20 meq PO BID 12/17/13 Quetiapine Fumarate [Seroquel] 200 mg PO BEDTIME 12/17/13 Rosuvastatin Calcium [Crestor] 20 mg PO DAILY 12/17/13 Diltiazem HCl Coated Beads [Diltiazem Cd] 180 mg PO DAILY 12/09/15 Linaclotide [Linzess] 145 mcg PO DAILY 03/28/17 Meloxicam 7.5 mg PO DAILY 03/28/17 Warfarin Sodium 2 mg PO BEDTIME 03/28/17 Calcium Carbonate-Cholecalcife [Os-Dru 500 + D] 1 tab PO BID 03/16/18 Digoxin [Digox] 2 tablet PO MOWEFR 03/16/18 Melatonin 5 mg PO BEDTIME 03/16/18 Albuterol Sulfate [Ventolin Hfa] 108 inhaler INH Q6HR 05/26/18 Phenytoin Sodium Extended 200 mg PO BEDTIME 08/18/18 Sulfa/Trimeth 800/160 (Ds) Tab [Bactrim DS Tab] 1 ea PO BID #10 tab 08/18/18 Additional Instructions: You were seen in the Emergency Department today. Please fill and take the medications as prescribed (if any) and if you were prescribed antibiotics, please complete the full course. You will need further evaluation on an out patient basis. You must follow up with the listed locations and within the time frames indicated in your discharge paperwork (including your PCP in 3-5 days). Failure to follow up with any studies or doctor visits within the timeframe mentioned could result in poor outcome. Your examination today in the ED did not reveal a new or old problem that required immediate surgery or admission to the hospital. However, you should return to the ED if you are not improving as instructed (especially within the first 6 to 24 hours). This may include things such as uncontrolled vomiting, shortness of breath, fever, bleeding, or severe pain in a body part. You should return for any new or worsening emergency symptoms such as chest pain, severe headache, confusion, or severe abdominal pain. Finally, return to the emergency department if you have any concerns not mentioned above that are concerning to you or if you are unable to follow up as instructed above. Thank you for coming to [facility]. It was our pleasure to serve you today and we thank you for your visit.
[2019-02-22 11:23] VITALS: TEMP 97
[2019-02-22 13:06] VITALS: BP 158/79; O2SAT 96
== END 2019-02-22 13:05 | disposition home or self-care (01) ==
LOC: ER 10:18
DX: R00.2 Palpitations (principal); I48.91 Unspecified atrial fibrillation; R53.1 Weakness; R05 Cough; R09.81 Nasal congestion; R56.9 Unspecified convulsions; J44.9 Chronic obstructive pulmonary disease, unspecified; E78.00 Pure hypercholesterolemia, unspecified; I50.9 Heart failure, unspecified; I11.0 Hypertensive heart disease with heart failure; E07.9 Disorder of thyroid, unspecified; K21.9 Gastro-esophageal reflux disease without esophagitis; Z79.899 Other long term (current) drug therapy; Z86.73 Personal history of transient ischemic attack (TIA), and cerebral infarction without residual deficits; Z79.01 Long term (current) use of anticoagulants; Z88.1 Allergy status to other antibiotic agents

== ENCOUNTER → 2019-03-05 | Outpatient (CLI) | payer MEDICARE, MEDICAID | LOC: YCHH 09:15 | PROVIDERS: ATTEND Family Medicine | DX: I25.10 Atherosclerotic heart disease of native coronary artery without angina pectoris (principal); E03.9 Hypothyroidism, unspecified; R79.89 Other specified abnormal findings of blood chemistry; Z79.899 Other long term (current) drug therapy; Z51.81 Encounter for therapeutic drug level monitoring ==

== ENCOUNTER → 2019-06-09 | Outpatient (CLI) | payer MEDICARE, MEDICAID | LOC: YCHH 09:27 | PROVIDERS: ATTEND Family Medicine | DX: E78.5 Hyperlipidemia, unspecified (principal); E03.9 Hypothyroidism, unspecified; R79.89 Other specified abnormal findings of blood chemistry; D64.9 Anemia, unspecified; Z79.899 Other long term (current) drug therapy; Z51.81 Encounter for therapeutic drug level monitoring ==

== ENCOUNTER → 2019-06-18 | Outpatient (CLI) | payer MEDICARE, MEDICAID | LOC: YCHH 11:14 | PROVIDERS: ATTEND Family Medicine | DX: R30.0 Dysuria (principal) ==

== ENCOUNTER → 2019-11-14 | Outpatient (CLI) | payer MEDICARE, MEDICAID | LOC: YCHH 11:19 | PROVIDERS: ATTEND Family Medicine | DX: R30.0 Dysuria (principal) ==

== ENCOUNTER → 2019-12-10 | Outpatient (CLI) | payer MEDICARE, MEDICAID | LOC: YCHH 11:20 | PROVIDERS: ATTEND Family Medicine | DX: D64.9 Anemia, unspecified (principal); E78.5 Hyperlipidemia, unspecified; N18.9 Chronic kidney disease, unspecified; E11.9 Type 2 diabetes mellitus without complications; E03.9 Hypothyroidism, unspecified; I48.0 Paroxysmal atrial fibrillation; G40.909 Epilepsy, unspecified, not intractable, without status epilepticus ==

== ENCOUNTER → 2020-01-28 | Outpatient (CLI) | payer MEDICARE, MEDICAID | LOC: YCHH 10:12 | PROVIDERS: ATTEND Family Medicine | DX: I48.20 Chronic atrial fibrillation, unspecified (principal); I25.10 Atherosclerotic heart disease of native coronary artery without angina pectoris; I50.9 Heart failure, unspecified; N39.0 Urinary tract infection, site not specified; E03.9 Hypothyroidism, unspecified; R56.9 Unspecified convulsions; D64.9 Anemia, unspecified ==